=== PATIENT | male | born 1940 | race Caucasian/White ===

== ENCOUNTER 2019-11-14 14:32 | Inpatient (IN) ==
[2019-11-14] MEDS ORDERED: SODIUM CHLORIDE 0.9% 1000ML 1,000 ML IV ONE (14:52)
--- NOTE | 2019-11-14 15:07 | Emergency Department Note ---
Entered by Kathy Aguilera acting as a scribe for Srinivas Anders MD History of Present Illness General Chief complaint: Weakness Stated complaint: TROUBLE WALKING, WEAK, FREQUENT URINATION BUT NOT Time Seen by Provider: 11/14/19 14:40 Source: patient Mode of arrival: ambulatory Limitations: no limitations History of Present Illness Onset (ago): week(s) Radiation: non-radiation Pain Consistency: + constant Maximum Pain Intensity: 0 Relieved By: + none Exacerbated By: + none Associated symptoms: + cough, + loss of appetite and + other (-loss of vision, +throat pain with swallowing, +abdominal pain, -back pain, -hematochezia); no fever/chills Treatments prior to arrival: none The patient is an 79 year old male who presents to the ED with complaints of weakness for the past 2 weeks. He did see his PCP, Dr. Santamaria, 2 days ago, and was started on antibiotics for a urinary tract infection. His family states they have noticed a "steady downhill decline" in the patient over the past few weeks. He has been unable to sleep, weak, urinating more frequently and has had a decreased appetite. He states his throat does bother him with swallowing. He denies any recent fevers or falls. He denies any changes in vision. He does admit to increased coughing, saying "I cough a lot of mucous up". He denies any chest pain or palpitations but complains of some abdominal pain. He denies any hematochezia or back pain. He denies any recent changes in medications. Home Medications Home Medications Medication Instructions Recorded Confirmed Type albuterol sulfate 90 mcg/actuation 1 puffs INH Q6H PRN 10/01/19 11/14/19 History aerosol inhaler cyanocobalamin (vitamin B-12) 5,000 mcg PO DAILY 10/01/19 11/14/19 History 5,000 mcg capsule hydrochlorothiazide 12.5 mg capsule 12.5 mg PO DAILY 10/01/19 11/14/19 History multivitamin 1 tab PO DAILY 10/01/19 11/14/19 History tamsulosin 0.4 mg capsule 0.4 mg PO DAILY 10/01/19 11/14/19 History sulfamethoxazole 800 1 tab PO BID 10 Days #20 tab 11/12/19 11/14/19 Rx mg-trimethoprim 160 mg tablet Allergies Allergy/AdvReac Type Severity Reaction Status Date / Time No Known Allergies Allergy Verified 11/14/19 15:02 Past Med/Surg History Medical History B12 deficiency BPH (benign prostatic hyperplasia) Dyslipidemia Rosacea Surgical History S/P tonsillectomy Social History Preferred Language: Swedish Communication Ability: Effective Visual Impairment: No Limitations Hearing Ability: Normal Customer Support Coordinator Required: No Beliefs That Will Affect Care: None marital status: Current Living Situation: Spouse current occupational status: employed and retired current occupation: self employed, [employer] Feels Safe at Home: Yes Smoking Status: Former smoker Tobacco Type: cigarettes and smokeless tobacco ; packs per day: 1 ; Hx Alcohol Use: Yes Alcohol type: beer Alcohol Intake Frequency: Rarely Hx Substance Use: No Childhood Exposure to Second-Hand Smoke: Yes caffeine: Yes (2 cups coffee day) during the past year weight has: remained stable Dental Care, Regularly: No Physical Activity Frequency: Does not Exercise Seatbelt Use: never Sunscreen Use: Yes Review of Systems See HPI for pertinent positives & negatives. and A total of 10 systems reviewed and were otherwise negative Physical Exam Vital Signs Vital Signs - 24 hr 11/14/19 14:34 11/14/19 15:10 11/14/19 16:22 Temperature 36.7 C Temperature Source Oral Pulse Rate 102 H Pulse Rate [Left] 88 102 H Pulse Rhythm [Left] Regular Regular Respiratory Rate 20 22 20 Respiratory Effort / Characteristics Non-Labored Non-Labored Non-Labored Respiratory Depth Normal Normal Normal Respiratory Pattern Regular Regular Blood Pressure 105/64 Blood Pressure [Right Arm] 110/75 110/83 Blood Pressure Mean 77 Blood Pressure Mean [Right Arm] 86 92 Pulse Oximetry 96 97 99 Oxygen Delivery Method Room Air Room Air Room Air Sepsis Recent Fever Within 48 Hours No Sepsis Action Taken by Nursing No Action Required 11/14/19 17:13 Temperature Temperature Source Pulse Rate Pulse Rate [Left] 95 H Pulse Rhythm [Left] Regular Respiratory Rate 25 H Respiratory Effort / Characteristics Non-Labored Respiratory Depth Normal Respiratory Pattern Regular Blood Pressure Blood Pressure [Right Arm] 136/82 Blood Pressure Mean Blood Pressure Mean [Right Arm] 100 Pulse Oximetry 99 Oxygen Delivery Method Room Air Sepsis Recent Fever Within 48 Hours Sepsis Action Taken by Nursing General: Non-ill appearing older male in no acute distress. HEENT: Normal cephalic atraumatic. Pupils are equal round and reactive to light. Extraocular movements are intact. Oropharynx is pink with moist mucous membranes. No swelling of the mouth lips or tongue. Neck: Supple with a midline trachea. No meningeal signs or stiffness, no JVD or bruits. No Stridor. Chest: Clear to auscultation bilaterally. No wheezes or rhonchi. No increased work of breathing. Heart: regular rate and rhythm. Abdomen: Soft nontender, nondistended without rebound guarding or rigidity. Extremities: No cyanosis clubbing or edema. No calf tenderness or asymmetry Spine/Back. Non tender to palpation. No CVA tenderness Skin: Good turgor without rashes. Neurologic exam: Cranial nerves two through 12 are intact. Motor and sensation are intact and symmetrical throughout. Course Course 1442: The patient was evaluated in room A10 and a complete history and physical were performed. 1540: I reevaluated the patient. He is resting comfortably and waiting to CT scan. 1555: I reevaluated the patient. He is resting comfortably and responds appropriately to questions. 1645: I reevaluated the patient. He is stable and resting comfortably. I discussed his results and my recommendation he remain in the hospital for further evaluation and management and he is agreeable with the plan. 1652: I discussed the patients case with Dr. Fernandez, [facility] Hospitalist. She would like me to talk to GI. 1655: I discussed the patients case with Dr. Stallworth, [facility] Gastroenterology. He recommends we talk to General Surgery. 1702: I discussed the patients case with Dr. Moy [facility] General Surgery. If the hospitalist is comfortable treating the patient here, he can remain here, or be transferred depending on the hospitalist and families wishes. 1710: I spoke to Dr. Fernandez and she is comfortable keeping the patient here. The family would also like the patient to stay here if possible. If the patient worsens, the family will consider transfer but they are comfortable with the plan. Administered Medications Ciprofloxacin (Cipro) 400 mg in 200 mls @ 100 mls/hr IV Q12 TRINIDAD; Protocol Stop: 11/24/19 20:59 Last Admin: 11/14/19 20:49 Dose: 100 mls/hr Documented by: [id number] Potassium Chloride/Sodium Chloride (Normal Saline W/20 Meq Kcl) 20 meq in 1,000 mls @ 80 mls/hr IV .[id number] TRINIDAD Stop: 12/14/19 19:59 Last Admin: 11/14/19 20:48 Dose: 80 mls/hr Documented by: [id number] Tamsulosin HCl (Flomax) 0.4 mg PO DAILY [place]ID[place] Stop: 12/14/19 19:45 Last Admin: 11/14/19 20:44 Dose: 0.4 mg Documented by: [id number] Discontinued Medications Sodium Chloride (Nss 1000ml) 1,000 mls @ 999 mls/hr IV .[id number] ONE Stop: 11/14/19 15:52 Last Infusion: 11/14/19 17:26 Dose: 0 mls/hr Documented by: [id number] Admin: 11/14/19 16:21 Dose: 999 mls/hr Documented by: [id number] Piperacillin Sod/Tazobactam Sod (Zosyn) 4.5 gm in 120 mls @ 240 mls/hr IV NOW STA Stop: 11/14/19 17:18 Last Infusion: 11/14/19 17:45 Dose: 0 mls/hr Documented by: [id number] Admin: 11/14/19 17:13 Dose: 240 mls/hr Documented by: [id number] Medical Decision Making Differential Diagnosis The differential diagnoses considered include sepsis, electrolyte or metabolic abnormality, intracranial process, intracranial process, diverticulitis, UTI and cardiac disease. Medical Records Attestation: I reviewed the patient's medical records. Home Medications Current Medication List: was personally reviewed by me Laboratory Data Attestation: I reviewed the patient's lab results. Result diagrams: 11/14/19 15:11 11/14/19 15:11 Lab Results 11/14/19 11/14/19 11/14/19 Range/Units 15:11 15:11 15:11 WBC 10.91 H (4.8-10.8) K/uL RBC 3.80 L (4.7-6.1) M/uL Hgb 11.2 L (14.0-18.0) g/dL Hct 32.6 L (42-52) % MCV 85.8 (80-100) fL MCH 29.5 (25-34) pg MCHC 34.4 (32-36) g/dL RDW Std Deviation 40.9 (36.4-46.3) fL RDW Coeff of Brandan 13.0 (11.5-14.5) % Plt Count 250 (130-400) K/uL MPV 9.0 (7.4-10.4) fL Immature Gran % (Auto) 0.6 % Neut % (Auto) 80.0 % Lymph % (Auto) 8.4 % [place] % (Auto) 10.4 % Eos % (Auto) 0.4 % Baso % (Auto) 0.2 % Immature Gran # (Auto) 0.07 H (0.00-0.02) K/uL Neut # (Auto) 8.72 H (1.4-6.5) K/uL Lymph # (Auto) 0.92 L (1.2-3.4) K/uL [place] # (Auto) 1.14 H (0.11-0.59) K/uL Eos # (Auto) 0.04 (0-0.5) K/uL Baso # (Auto) 0.02 (0-0.2) K/uL PT 13.3 H (9.0-12.0) Seconds INR 1.3 H (0.9-1.1) APTT 28.5 (21.0-31.0) Seconds PTT Ratio 1.1 Sodium 128 L (136-145) mmol/L Potassium 3.1 L (3.5-5.1) mmol/L Chloride 91 L (98-107) mmol/L Carbon Dioxide 29 (21-32) mmol/L Anion Gap 8.0 (3-11) BUN 16 (7-18) mg/dl Creatinine 0.86 (0.6-1.4) mg/dl Est Cr Clr Drug Dosing 62.3 ml/min Est GFR ( Amer) 94.9 Est GFR (Non-Af Amer) 81.9 BUN/Creatinine Ratio 18.6 (10-20) Glucose 102 H (70-99) mg/dl Lactate (0.4-2.0) mmol/L Calcium 8.0 L (8.5-10.1) mg/dl Total Bilirubin 0.5 (0.2-1) mg/dl AST 38 H (15-37) U/L ALT 27 (12-78) U/L Alkaline Phosphatase 82 (45-117) U/L Troponin I < 0.015 (0-0.045) ng/ml Total Protein 6.3 L (6.4-8.2) gm/dl Albumin 2.0 L (3.4-5.0) gm/dl Globulin 4.3 H (2.5-4.0) gm/dl Albumin/Globulin Ratio 0.5 L (0.9-2) Procalcitonin (0-0.5) ng/ml Urine Color Urine Appearance (Clear) Urine pH (4.5-7.5) Ur Specific [place] (1.000-1.030) Urine Protein (Negative) Urine Glucose (UA) (Negative) Urine Ketones (Negative) Urine Blood (Negative) Urine Nitrite (Negative) Urine Bilirubin (Negative) Urine Urobilinogen (Negative) Ur Leukocyte Esterase (Negative) Urine WBC (Auto) (0-5) /hpf Urine RBC (Auto) (0-4) /hpf U Hyaline Cast (Auto) (0-5) /lpf U Epithel Cells (Auto) (0-5) /lpf Urine Bacteria (Auto) (Negative) Urine Yeast 11/14/19 11/14/19 11/14/19 Range/Units 15:11 15:17 16:00 WBC (4.8-10.8) K/uL RBC (4.7-6.1) M/uL Hgb (14.0-18.0) g/dL Hct (42-52) % MCV (80-100) fL MCH (25-34) pg MCHC (32-36) g/dL RDW Std Deviation (36.4-46.3) fL RDW Coeff of Brandan (11.5-14.5) % Plt Count (130-400) K/uL MPV (7.4-10.4) fL Immature Gran % (Auto) % Neut % (Auto) % Lymph % (Auto) % [place] % (Auto) % Eos % (Auto) % Baso % (Auto) % Immature Gran # (Auto) (0.00-0.02) K/uL Neut # (Auto) (1.4-6.5) K/uL Lymph # (Auto) (1.2-3.4) K/uL [place] # (Auto) (0.11-0.59) K/uL Eos # (Auto) (0-0.5) K/uL Baso # (Auto) (0-0.2) K/uL PT (9.0-12.0) Seconds INR (0.9-1.1) APTT (21.0-31.0) Seconds PTT Ratio Sodium (136-145) mmol/L Potassium (3.5-5.1) mmol/L Chloride (98-107) mmol/L Carbon Dioxide (21-32) mmol/L Anion Gap (3-11) BUN (7-18) mg/dl Creatinine (0.6-1.4) mg/dl Est Cr Clr Drug Dosing ml/min Est GFR ( Amer) Est GFR (Non-Af Amer) BUN/Creatinine Ratio (10-20) Glucose (70-99) mg/dl Lactate 1.2 (0.4-2.0) mmol/L Calcium (8.5-10.1) mg/dl Total Bilirubin (0.2-1) mg/dl AST (15-37) U/L ALT (12-78) U/L Alkaline Phosphatase (45-117) U/L Troponin I (0-0.045) ng/ml Total Protein (6.4-8.2) gm/dl Albumin (3.4-5.0) gm/dl Globulin (2.5-4.0) gm/dl Albumin/Globulin Ratio (0.9-2) Procalcitonin 0.18 (0-0.5) ng/ml Urine Color Yellow Urine Appearance Turbid A (Clear) Urine pH 7.0 (4.5-7.5) Ur Specific [place] 1.010 (1.000-1.030) Urine Protein 1+ H (Negative) Urine Glucose (UA) Negative (Negative) Urine Ketones Negative (Negative) Urine Blood 3+ H (Negative) Urine Nitrite Negative (Negative) Urine Bilirubin Negative (Negative) Urine Urobilinogen Negative (Negative) Ur Leukocyte Esterase 3+ H (Negative) Urine WBC (Auto) >30 H (0-5) /hpf Urine RBC (Auto) 5-10 H (0-4) /hpf U Hyaline Cast (Auto) 0 (0-5) /lpf U Epithel Cells (Auto) 10-20 H (0-5) /lpf Urine Bacteria (Auto) 1+ H (Negative) Urine Yeast Not Reportable Imaging Data Radiologist's Impression: Radiology results as stated below per my review and the radiologist's interpretation: XR chest 1V portable CLINICAL HISTORY: 79 years-old Male presenting with Sepsis. TECHNIQUE: Portable upright AP view of the chest was obtained. COMPARISON: Chest CT from 11/10/2019. FINDINGS: Cardiomediastinal silhouette normal. Coarsened lung markings with subtle reticular opacities in the periphery of the mid to lower lungs. This correlates with the extensive subpleural reticulation evident on recent CT chest. No new focal opacity. No large effusion or pneumothorax. Degenerative changes of the thoracic spine. Degenerative changes of the shoulders. Upper abdomen normal. IMPRESSION: 1. Chronic reticular peripheral mid to basilar predominant infiltrates as on chest CT consistent with chronic lung disease. No convincing evidence of a superimposed infiltrate to raise concern for pneumonia. ACT 112: Negative or not required by law. Electronically signed by: Malik Norman M.D. 11/14/2019 3:[address] head/brain wo con CLINICAL HISTORY: 79 years-old Male presenting with weakness diffuse, confusion. TECHNIQUE: Multidetector CT imaging of the head was performed without the use of intravenous contrast. IV contrast: None. One or more dose lowering techniques were used consistent with the principles of ALARA (as low as reasonably achievable), including automatic exposure control, mA or kV adjustment to individual patient size, and/or use of iterative reconstruction. COMPARISON: None. CT DOSE (mGy.cm): The estimated cumulative dose is 1089.85 mGy.cm. FINDINGS: Conditioner Tumbler Operator topogram: Unremarkable. Proportional ventricular and sulcal prominence, likely age-related parenchymal volume loss. No hemorrhage. Brain parenchyma normal in appearance with preserved gonzalez-white differentiation. No acute territorial infarct. No mass effect or midline shift. No extra-axial fluid collection. Paranasal sinuses and mastoid air cells clear. Calvarium intact. IMPRESSION: 1. No acute intracranial abnormality. ACT 112: Negative or not required by law. Electronically signed by: Malik Norman M.D. 11/14/2019 4:[address] abd pelvis wo con CLINICAL HISTORY: 79 years-old Male presenting with abd pain, weight loss, confusion, hx of diverticulitis. TECHNIQUE: Multidetector CT of the abdomen and pelvis was performed without the use of intravenous contrast. IV contrast: None. One or more dose lowering techniques were used consistent with the principles of ALARA (as low as reasonably achievable), including automatic exposure control, mA or kV adju stment to individual patient size, and/or use of iterative reconstruction. COMPARISON: None. CT DOSE (mGy.cm): The estimated cumulative dose is 1089.85. FINDINGS: Conditioner Tumbler Operator topogram: Unremarkable. Lung bases: Trace aortic valve calcification. Top normal heart size. Intraventricular blood pool may be slightly less dense than adjacent myocardium. No pericardial or pleural effusion. Reticular peripheral and subpleural predominant infiltrates. Trace bronchiectasis may be present. Few cysts or emphy sema also noted. Liver: Normal morphology. Normal density. Biliary: No gross biliary ductal dilatation allowing for noncontrast technique. Normal gallbladder. Pancreas: Moderate parenchymal atrophy. Spleen: Normal noncontrast appearance. Adrenal glands: 2.1 cm nodule in the right adrenal gland compatible with benign adenoma by density. Normal noncontrast appearance of the left adrenal gland. Kidneys and ureters: Normal noncontrast appearance. No nephrolithiasis. No hydronephrosis. Normal ureters. Bladder: Gas in the urinary bladder with a fistula suspected to adjacent bowel along the bladder dome. The bladder is incompletely distended with focal wall thickening of the bladder dome. Pelvic organs: Prostate enlargement likely secondary to benign prostatic hyperplasia. Bowel: Significant wall thickening of the sigmoid colon. This region is also affected by diverticulosis. Trace pericolonic inflammatory change in this region. There is suspected fistulization with adjacent bowel arising from the proximal sigmoid colon. A collection is suggested in the left lower quadrant measuring approximately 3.5 cm. This may either connect or be adjacent to a separate possible collection involving the overlying abdominal musculature measuring 3.7 cm. Fistulization with an adjacent loop of small bowel as well as the bladder dome is suspected along the anteromedial aspect (series 5 image 3 [phone]). Mild diverticulosis of the descending colon. Mild stool burden throughout normal caliber colon. The appendix is normal. No bowel obstruction. Peritoneal cavity: Inflammatory change in the left lower quadrant with infiltrated mesentery. Fluid collections containing feces and gas as measured above. No significant free intraperitoneal fluid. No free intraperitoneal gas apart from the loculated collections. Lymph nodes: No gross lymphadenopathy allowing for noncontrast technique. Vasculature: Atherosclerosis of the normal caliber abdominal aorta. Abdominal wall: Infiltration of the small fat-containing left inguinal hernia along the inner ring. Small fat-containing right inguinal hernia also noted. Musculoskeletal: Degenerative changes of the spine. IMPRESSION: 1. Extensive wall thickening of the sigmoid colon with pericolonic inflammatory change and diverticulosis suggesting chronic diverticular disease/circular muscle hyperplasia with superimposed complicated acute diverticulitis. Fistulization suspected with the adjacent urinary bladder, loops of small bowel, and multiple gas and feces containing collections. These collections presumably represent abscesses and measure up to 3.7 cm. These are not well delineated in the absence of intravenous and oral contrast. An underlying sigmoid colon neoplasm is difficult to exclude and colonoscopy should be performed after treat ment. 2. Chronic lung disease. ACT 112: Negative or not required by law. Electronically signed by: Malik Norman M.D. 11/14/2019 4:33 PM ECG Data Attestation: I personally reviewed and interpreted this ECG as follows: Indication: + weakness Rate (beats per minute): 102 Rhythm: + sinus tachycardia ECG ST segments: no ST depression and no ST elevation ECG Findings: + PACs and + PVCs Comparison ECG Date: no prior available MDM Narrative This patient comes in as described above. He has been having weakness over the last several weeks. he has had weight loss and he has not been eating much. At one point, he has been having some abdominal pain as well he was recent for UTI starting with meds on . His family thinks that this is all new and or concern for infection among other potential etiologies. He appears in no distress and stable vital signs. I did order CAT scan of his head as well as his abdomen. he had a recent chest CT which shows some chronic interstitial lung disease but no other acute changes. EKG and multiple blood testing was obtained including blood cultures. he was hydrated 1 L IV normal saline fluid bolus. He was reassessed frequently. Chest x-ray shows no acute findings he has some chronic disease. EKG shows PACs but no acute abnormalities. Troponin is not el evated he has nothing to suggest acute coronary syndrome or significant arrhythmia. He does have a normal neurologic exam and a CAT scan of his head shows no acute findings. His sodium is mildly low at 128, he was hydrated with IV normal saline and this could be related to dehydration. His potassium is also mildly low at 3.1. He has a normal lactic acid which would go against sepsis. His white count is only mildly elevated at 10. CAT scan of the head was unremarkable CAT scan of the abdomen shows significant colonic changes likely consistent with acute on chronic diverticulitis with some fistula some small abscesses. He was given Zosyn 4.5 g IV. I discussed this with Dr. Stallworth, GI line production cook, who felt that he was IV antibiotics acutely but recommended I discussed it with Dr. Moy. Dr. Moy, Surgeon on-call, agreed and they both agreed that he should be seen by a colorectal surgeon at some point but the short-term treatment is most likely just to be IV antibiotics unless he gets septic or gets worse. The family is happy with him being admitted here and I think that for tonight that is a good game plan and obviously if he gets worse he can be transferred out. He will need to be followed up by colorectal surgery or surgery at some point the near future as well. I did discuss case with Dr. Johnson the on-call hospitalist she agrees and will see the patient in the ER. Impression & Plan Diverticulitis, Weakness, Colitis, Abscess, Fistula, Hyponatremia Discharge Plan Visit Data *Final* Discharge Date/Time: 11/14/19 18:39 Chief Complaint: Weakness Stated Complaint: TROUBLE WALKING, WEAK, FREQUENT URINATION BUT NOT ED Provider: Srinivas Anders Discharge Problem: Diverticulitis, Weakness, Colitis, Abscess, Fistula, Hyponatremia Patient Disposition: Admitted As Inpatient Discharge Instructions Interventions: ED Discharge Assessment Last Done: 11/14/19 18:39 The scribe's documentation has been prepared under my direction and personally reviewed by me in its entirety. I confirm that the note above accurately reflects all work, treatment, procedures, and medical decision making performed by me.
--- NOTE | 2019-11-14 15:34 | XRay Report ---
XR chest 1V portable CLINICAL HISTORY: 79 years-old Male presenting with Sepsis. TECHNIQUE: Portable upright AP view of the chest was obtained. COMPARISON: Chest CT from 11/10/2019. FINDINGS: Cardiomediastinal silhouette normal. Coarsened lung markings with subtle reticular opacities in the p eriphery of the mid to lower lungs. This correlates with the extensive subpleural reticulation eviden t on recent CT chest. No new focal opacity. No large effusion or pneumothorax. Degenerative changes o f the thoracic spine. Degenerative changes of the shoulders. Upper abdomen normal. IMPRESSION: 1. Chronic reticular peripheral mid to basilar predominant infiltrates as on chest CT consistent wit h chronic lung disease. No convincing evidence of a superimposed infiltrate to raise concern for pneu monia. ACT 112: Negative or not required by law. Electronically signed by: Malik Norman M.D. 11/14/2019 3:33 PM
[2019-11-14 15:41] LABS: Basophils # (auto) 0.02 K/uL (0-0.2); Basophils % (auto) 0.2 %; Eosinophils # (auto) 0.04 K/uL (0-0.5); Eosinophils % (auto) 0.4 %; Hematocrit (blood only) 32.6 % (42-52); Hemoglobin 11.2 g/dL (14.0-18.0); Immature Granulocytes # (auto) 0.07 K/uL (0.00-0.02); Immature Granulocytes % (auto) 0.6 %; Lymphocytes # (auto) 0.92 K/uL (1.2-3.4); Lymphocytes % (auto) 8.4 %; Mean Corpuscular Hemoglobin 29.5 pg (25-34); Mean Corpuscular Hgb Conc 34.4 g/dL (32-36); Mean Corpuscular Volume 85.8 fL (80-100); Monocytes # (auto) 1.14 K/uL (0.11-0.59); Monocytes % (auto) 10.4 %; Neutrophils # (auto) 8.72 K/uL (1.4-6.5); Platelet Count 250 K/uL (130-400); RDW Standard Deviation 40.9 fL (36.4-46.3); White Blood Count 10.91 K/uL (4.8-10.8)
[2019-11-14 16:00] LABS: Alanine Aminotransferase 27 U/L (12-78); Aspartate Aminotransferase 38 U/L (15-37); BUN Creatinine Ratio 18.6 (10-20); Blood Urea Nitrogen 16 mg/dl (7-18); Carbon Dioxide 29 mmol/L (21-32); Chloride 91 mmol/L (98-107); Creatinine Clr Calc Pharmacy 62.3 ml/min; Est GFR (African American) 94.9; Est GFR (Non-African American) 81.9; Glucose 102 mg/dl (70-99); Potassium 3.1 mmol/L (3.5-5.1); Sodium 128 mmol/L (136-145)
[2019-11-14 16:04] LABS: Albumin Globulin Ratio 0.5 (0.9-2); Alkaline Phosphatase 82 U/L (45-117); Bilirubin,Total 0.5 mg/dl (0.2-1); Globulin 4.3 gm/dl (2.5-4.0); Total Protein 6.3 gm/dl (6.4-8.2); Troponin I < 0.015 ng/ml (0-0.045)
[2019-11-14 16:09] LABS: INR 1.3 (0.9-1.1); Partial Thromboplastin Ratio 1.1; Partial Thromboplastin Time 28.5 Seconds (21.0-31.0); Prothrombin Time 13.3 Seconds (9.0-12.0)
--- NOTE | 2019-11-14 16:25 | CT Scan Report ---
CT head/brain wo con CLINICAL HISTORY: 79 years-old Male presenting with weakness diffuse, confusion. TECHNIQUE: Multidetector CT imaging of the head was performed without the use of intravenous contrast . IV contrast: None. One or more dose lowering techniques were used consistent with the principles of ALARA (as low as reasonably achievable), including automatic exposure control, mA or kV adjustment t o individual patient size, and/or use of iterative reconstruction. COMPARISON: None. CT DOSE (mGy.cm): The estimated cumulative dose is 1089.85 mGy.cm. FINDINGS: Help Desk Assistant topogram: Unremarkable. Proportional ventricular and sulcal prominence, likely age-related parenchymal volume loss. No hemorr jamin. Brain parenchyma normal in appearance with preserved gonzalez-white differentiation. No acute maxwell torial infarct. No mass effect or midline shift. No extra-axial fluid collection. Paranasal sinuses a nd mastoid air cells clear. Calvarium intact. IMPRESSION: 1. No acute intracranial abnormality. ACT 112: Negative or not required by law. Electronically signed by: Malik Norman M.D. 11/14/2019 4:23 PM
[2019-11-14 16:26] LABS: Appearance Urine Turbid (Clear); Bacteria Urine Automated 1+ (Negative); Bilirubin Urine Negative (Negative); Blood Urine 3+ (Negative); Cast Urine Automated 0 /lpf (0-5); Color Urine Yellow; Glucose Urine UA Negative (Negative); Ketones Urine Negative (Negative); Leukocyte Esterase Urine 3+ (Negative); Nitrite Urine Negative (Negative); Protein Urine 1+ (Negative); Urobilinogen Urine Negative (Negative); WBC Urine Automated >30 /hpf (0-5)
--- NOTE | 2019-11-14 16:34 | CT Scan Report ---
CT abd pelvis wo con CLINICAL HISTORY: 79 years-old Male presenting with abd pain, weight loss, confusion, hx of diverticu litis. TECHNIQUE: Multidetector CT of the abdomen and pelvis was performed without the use of intravenous co ntrast. IV contrast: None. One or more dose lowering techniques were used consistent with the princip les of MARIANA (as low as reasonably achievable), including automatic exposure control, mA or kV adjust ment to individual patient size, and/or use of iterative reconstruction. COMPARISON: None. CT DOSE (mGy.cm): The estimated cumulative dose is 1089.85. FINDINGS: Box Printer topogram: Unremarkable. Lung bases: Trace aortic valve calcification. Top normal heart size. Intraventricular blood pool may be slightly less dense than adjacent myocardium. No pericardial or pleural effusion. Reticular periph eral and subpleural predominant infiltrates. Trace bronchiectasis may be present. Few cysts or emphys km also noted. Liver: Normal morphology. Normal density. Biliary: No gross biliary ductal dilatation allowing for noncontrast technique. Normal gallbladder. Pancreas: Moderate parenchymal atrophy. Spleen: Normal noncontrast appearance. Adrenal glands: 2.1 cm nodule in the right adrenal gland compatible with benign adenoma by density. N ormal noncontrast appearance of the left adrenal gland. Kidneys and ureters: Normal noncontrast appearance. No nephrolithiasis. No hydronephrosis. Normal ure ters. Bladder: Gas in the urinary bladder with a fistula suspected to adjacent bowel along the bladder dome . The bladder is incompletely distended with focal wall thickening of the bladder dome. Pelvic organs: Prostate enlargement likely secondary to benign prostatic hyperplasia. Bowel: Significant wall thickening of the sigmoid colon. This region is also affected by diverticulos is. Trace pericolonic inflammatory change in this region. There is suspected fistulization with adjac ent bowel arising from the proximal sigmoid colon. A collection is suggested in the left lower quadra nt measuring approximately 3.5 cm. This may either connect or be adjacent to a separate possible cherise ection involving the overlying abdominal musculature measuring 3.7 cm. Fistulization with an adjacent loop of small bowel as well as the bladder dome is suspected along the anteromedial aspect (series 5 image 352). Mild diverticulosis of the descending colon. Mild stool burden throughout normal caliber colon. The appendix is normal. No bowel obstruction. Peritoneal cavity: Inflammatory change in the left lower quadrant with infiltrated mesentery. Fluid c ollections containing feces and gas as measured above. No significant free intraperitoneal fluid. No free intraperitoneal gas apart from the loculated collections. Lymph nodes: No gross lymphadenopathy allowing for noncontrast technique. Vasculature: Atherosclerosis of the normal caliber abdominal aorta. Abdominal wall: Infiltration of the small fat-containing left inguinal hernia along the inner ring. S mall fat-containing right inguinal hernia also noted. Musculoskeletal: Degenerative changes of the spine. IMPRESSION: 1. Extensive wall thickening of the sigmoid colon with pericolonic inflammatory change and diverticu losis suggesting chronic diverticular disease/circular muscle hyperplasia with superimposed complicat ed acute diverticulitis. Fistulization suspected with the adjacent urinary bladder, loops of small alejandro wel, and multiple gas and feces containing collections. These collections presumably represent absces ses and measure up to 3.7 cm. These are not well delineated in the absence of intravenous and oral co ntrast. An underlying sigmoid colon neoplasm is difficult to exclude and colonoscopy should be perfor med after treatment. 2. Chronic lung disease. ACT 112: Negative or not required by law. Electronically signed by: Malik Norman M.D. 11/14/2019 4:33 PM
[2019-11-14] MEDS ORDERED: PIPERACILLIN/TAZOBACTAM 4.5 GM/120 ML BAG IV STA (16:49)
--- NOTE | 2019-11-14 17:56 | History & Physical Report ---
Date of Service November 14, 2019 Assessment & Plan (1) Colitis: Admit to [facility] on telemetry Vital signs every 4 hours Gentle IV fluid hydration with normal saline with potassium Monitor electrolytes closely and CBC/WBCs Urine culture and blood culture pending Fecal occult blood pending CA 199 and CEA pending Pain management Placed order for TTE since patient's EKG is abnormal. Stool cultures and C. difficile Keep n.p.o. for now until it is clear what is the next step. Discussed with GI. Consult gastroenterology Dr. Tomas Stallworth Started ciprofloxacin and Flagyl IV DVT prophylaxis-contraindicated medical DVT prophylaxis since patient has hematuria. Continue with SCDs and teds Full code Present on Admission?: Yes (2) Weakness: Patient would benefit from physical and Occupational Therapy. Generalized weakness most likely related to acute illness diverticulitis/abscess/urinary tract infection/fistula. Treat underlying problem Present on Admission?: Yes (3) Diverticulitis: As the above Present on Admission?: Yes (4) Abscess: As the above Present on Admission?: Yes (5) Fistula: As the above (6) Hyponatremia: (7) Rosacea: (8) B12 deficiency: Will check B12. Continue 5000 MCG's of B12 daily Present on Admission?: Yes (9) BPH (benign prostatic hyperplasia): Patient has hematuria. It could be related to BPH and or urinary tract infection. Started treatment for urinary tract infection with Cipro. Follow-up with urinary culture, then treat per specificity and sensitivity. Monitor CBC daily. H&H for now appears to be stable 11.2/32.6. Continue tamsulosin 0.4 mg capsule p.o. daily. Present on Admission?: Yes (10) Dyslipidemia: Lipid panel pending. Patient is not on any kind of lipid lowering agents. Present on Admission?: Yes (11) History of chronic cough: Continue albuterol sulfate 1 puff every 6 hours as needed. (12) Hypertension: Heart healthy diet. Continue hydrochlorothiazide 12.5 mg p.o. daily. Blood pressure appears to be stable. Continue monitoring every 4 hours. Present on Admission?: Yes (13) Hematuria: Most likely related to urinary tract infection but could be related to BPH as well. Plan to consult urology. Continue monitoring H&H. Present on Admission?: Yes (14) Urinary tract infection: As already discussed. Patient was started on ciprofloxacin which would cover for both urinary tract infection and infection of the bowel. Present on Admission?: Yes History of Present Illness Chief Complaint: Abdominal pain, weight loss and diarrhea Primary Care Provider: Litzy Santamaria DO Patient is a 79 years old male with past medical history of chronic cough, hypertension, BPH, B12 deficiency, who was brought by his son and with a complaint that patient has diarrhea and abdominal pain for 2 months and that he is losing weight and lost approximately approximately 20 pounds and that he was trying to avoid to see a doctor and address this problem for 2 months. Patient states that he lost appetite which was not of concern to him but it was of concern to his family. Patient said that his problem has been ongoing for 20 years and it is worsening. He reports having diverticulosis that on occasion becomes diverticulitis and he was treating it with antibiotics from time to time Metamucil etc. Patient family is concerned that if he goes home he will not be treated at all and they will have difficult time bringing him back. ER physician discussed the case with Dr. Tomas BYRD and he recommended to start him on antibiotics and see if there is any improvement but eventually patient would need to see colorectal surgeon for further evaluation and treatment of his extensive GI disease. Patient denies fever, chills, chest pain, shortness of breath, frequency, urgency. He reports loose bowel movements and states that there was no blood in there. Patient denies melena and hematochezia. Of the record, per ER physician patient's transfer to [facility] to see colorectal surgeon at this point would be extremely difficult because there is no bed available and patient would need to wait at least 12+ hours for the bed. Labs are reviewed: WBCs 10.91, hemoglobin 11.2, hematocrit 32.6, platelets 250, PT 13.3, INR 1.3, APTT 28.5. Sodium 128, potassium 3.1, chloride 91, creatinine 0.86, GFR 81.9, lactate 1.2, bilirubin 0.5, troponin is 0.015, total protein 6.3, albumin 2, globulin 4.3, procalcitonin 0.18, urine turbid, urine protein 1+, urine blood 3+, leukocyte esterase 3+, WBCs 30, bacteria 1+. CT abdomen pelvis shows extensive wall thickening of the sigmoid colon with tonio-colonic inflammatory change and diverticulosis suggesting chronic diverticular diseas e/circular muscle hyperplasia with superimposed complicated acute diverticulitis. Fistulization suspected with the adjacent urinary bladder, loops of small bowel and multiple gas and feces containing collections. These collections presumptively represent abscess measuring 3.7 cm. There are not well aligned in the absence of the intravenous and oral contrast. An underlying sigmoid colon neoplasm is difficult to exclude and colonoscopy should be performed after treatment. Patient has chronic lung disease. Decision was made to admit patient to [facility] floor acute on chronic diverticulitis/a bscess/fistula, urinary tract infection, anorexia, weight loss, and further on treatment deemed to be necessary. Allergies Allergy/AdvReac Type Severity Reaction Status Date / Time No Known Allergies Allergy Verified 11/14/19 15:02 Home Medications Home Medications Medication Instructions Recorded Confirmed Type albuterol sulfate 90 mcg/actuation 1 puffs INH Q6H PRN 10/01/19 11/14/19 History aerosol inhaler cyanocobalamin (vitamin B-12) 5,000 mcg PO DAILY 10/01/19 11/14/19 History 5,000 mcg capsule hydrochlorothiazide 12.5 mg capsule 12.5 mg PO DAILY 10/01/19 11/14/19 History multivitamin 1 tab PO DAILY 10/01/19 11/14/19 History tamsulosin 0.4 mg capsule 0.4 mg PO DAILY 10/01/19 11/14/19 History sulfamethoxazole 800 1 tab PO BID 10 Days #20 tab 11/12/19 11/14/19 Rx mg-trimethoprim 160 mg tablet Past Med/Surg History Medical History B12 deficiency BPH (benign prostatic hyperplasia) Dyslipidemia Rosacea Surgical History S/P tonsillectomy Social History Preferred Language: Slovenian Communication Ability: Effective Visual Impairment: No Limitations Hearing Ability: Normal [employer] Bi Developer Required: No Beliefs That Will Affect Care: None marital status: Current Living Situation: Spouse current occupational status: employed and retired current occupation: self employed, [employer] Other Information That Helps Us Care for You: No Feels Safe at Home: Yes Safety Concerns: Feels Safe At This Time Smoking Status: Former smoker Tobacco Type: cigarettes and smokeless tobacco ; packs per day: 1 ; Hx Alcohol Use: Yes Alcohol type: beer Alcohol Intake Frequency: Rarely Hx Substance Use: No Childhood Exposure to Second-Hand Smoke: Yes caffeine: Yes (2 cups coffee day) during the past year weight has: remained stable Dental Care, Regularly: No Physical Activity Frequency: Does not Exercise Seatbelt Use: never Sunscreen Use: Yes Review of Systems Review of Systems: All systems reviewed & are unremarkable except as noted in HPI & below Physical Exam Constitutional: WD/WN, vitals as above well developed and + cachectic Eyes: PERRL, conjunctivae normal, anicteric sclerae ENMT: external ear and nose normal, oropharynx normal Neck: trachea midline, no thyromegaly Respiratory: normal respiratory effort, lungs clear to auscultation Cardiovascular: Heart Sounds: normal S1 and normal S2 Vessels: dorsalis pedis pulses present Gastrointestinal (Abdomen): Inspection/Auscultation: + abdomen distended, + high-pitched sounds and + hyperactive bowel sounds Percussion/Palpation: + abdomen tender and abdomen soft Bowel sounds hyperactive and pitched. Patient reports nonbloody diarrhea. Musculoskeletal: no cyanosis or clubbing, extremities motor strength 5/5 Skin: no rashes, warm and dry Neurologic: patellar DTR's 2+ bilat, sensation intact Psychiatric: A+Ox3, euthymic affect Genitourinary: Positive for suprapubic tenderness Lymphatic: no cervical or axillary lymphadenopathy Results & Data Vital Signs (Past 12 Hours) Vital Signs Temp Pulse Pulse Resp BP BP Pulse Ox 11/14/19 17:13 95 H 25 H 136/82 99 11/14/19 16:22 102 H 20 110/83 99 11/14/19 15:10 88 22 110/75 97 11/14/19 14:34 36.7 C 102 H 20 105/64 96 Code Status & VTE Plan Code Status Full code VTE Prophylaxis Plan VTE Prophylaxis will be ordered: Yes PG Care Time/CCT Total # of Minutes Spent Total Time Spent with Patient: Total time spent is greater than 50% in coordination of care (as documented) at patient's floor/unit and/or counseling patient:
[2019-11-14] MEDS ORDERED: ALUMINUM/MAGNESIUM SUSP 30 ML UDC PO PRN (19:46)
[2019-11-14] MEDS ORDERED: POLYETHYLENE (MIRALAX) 17 GM PACK PO PRN (19:46)
[2019-11-14] MEDS ORDERED: MAGNESIUM HYDROXIDE SUSP 30 ML UDC PO PRN (19:46)
[2019-11-14] MEDS ORDERED: ACETAMINOPHEN 325 MG TAB PO PRN (19:46)
[2019-11-14] MEDS ORDERED: ONDANSETRON INJ 2 MG/ML 2 ML VIAL IV PRN (19:46)
[2019-11-14] MEDS ORDERED: MoRPHine SULFATE 2 MG/ML CARP IV PRN (19:46)
[2019-11-14] MEDS ORDERED: ALBUTEROL HFA 8 GM INHALER INH PRN (19:54)
[2019-11-14] MEDS: TAMSULOSIN HCL 0.4 MG CAP PO SCH (20:44)
[2019-11-14 20:45] LABS: Thyroid Stimulating Hormone 3.2 uIu/ml (0.300-4.500)
[2019-11-14] MEDS: NSS + 20MEQ KCL 20 MEQ/1,000 ML BAG IV SCH (20:48)
[2019-11-14] MEDS: CIPROFLOXACIN 400 MG/200 ML BAG IV SCH (20:49)
[2019-11-14 22:17] LABS: Appearance Urine Turbid (Clear); Bacteria Urine Automated Negative (Negative); Bilirubin Urine Negative (Negative); Blood Urine 3+ (Negative); Color Urine Yellow; Epithelial Cell Urine Auto >30 /lpf (0-5); Glucose Urine UA Negative (Negative); Ketones Urine Negative (Negative); Leukocyte Esterase Urine 3+ (Negative); Nitrite Urine Negative (Negative); Specific Gravity Urine 1.012 (1.000-1.030); Urobilinogen Urine Negative (Negative); WBC Urine Automated >30 /hpf (0-5); pH Urine 7.5 (4.5-7.5)
[2019-11-14 22:26] LABS: Protein Urine Negative (Negative); Sulfosalicylic Acid Urine Negative (Negative)
[2019-11-14] MEDS: metroNIDAZOLE 500 MG/100 ML BAG IV SCH (23:56)
[2019-11-15] MEDS ORDERED: CALCIUM CARBONATE 500 MG CHEWABLE TAB PO PRN (06:01)
[2019-11-15 06:39] LABS: Basophils # (auto) 0.01 K/uL (0-0.2); Basophils % (auto) 0.1 %; Eosinophils # (auto) 0.03 K/uL (0-0.5); Eosinophils % (auto) 0.4 %; Hematocrit (blood only) 31.5 % (42-52); Hemoglobin 10.8 g/dL (14.0-18.0); Immature Granulocytes # (auto) 0.05 K/uL (0.00-0.02); Immature Granulocytes % (auto) 0.6 %; Lymphocytes # (auto) 0.61 K/uL (1.2-3.4); Lymphocytes % (auto) 7.2 %; Mean Corpuscular Hemoglobin 29.6 pg (25-34); Mean Corpuscular Hgb Conc 34.3 g/dL (32-36); Mean Corpuscular Volume 86.3 fL (80-100); Monocytes % (auto) 10.7 %; Neutrophils # (auto) 6.85 K/uL (1.4-6.5); Platelet Count 221 K/uL (130-400); RDW Coefficient of Variation 13.1 % (11.5-14.5); RDW Standard Deviation 41.7 fL (36.4-46.3); Red Blood Count 3.65 M/uL (4.7-6.1); White Blood Count 8.45 K/uL (4.8-10.8)
[2019-11-15 07:20] LABS: Albumin Level 1.7 gm/dl (3.4-5.0); BUN Creatinine Ratio 14.6 (10-20); Bilirubin,Total 0.6 mg/dl (0.2-1); Calcium 7.6 mg/dl (8.5-10.1); Creatinine Clr Calc Pharmacy 66.5 ml/min; Est GFR (African American) 99.3; Est GFR (Non-African American) 85.7; Potassium 3.4 mmol/L (3.5-5.1)
[2019-11-15] MEDS: metroNIDAZOLE 500 MG/100 ML BAG IV SCH ×2 (07:20→15:00)
[2019-11-15 07:21] LABS: Albumin Globulin Ratio 0.4 (0.9-2); Globulin 3.9 gm/dl (2.5-4.0); Total Protein 5.6 gm/dl (6.4-8.2)
[2019-11-15] MEDS: TAMSULOSIN HCL 0.4 MG CAP PO SCH (08:44)
[2019-11-15] MEDS: CIPROFLOXACIN 400 MG/200 ML BAG IV SCH (08:44)
[2019-11-15] MEDS ORDERED: CYANOCOBALAMIN (VITAMIN B-12) 2,500 MCG TAB.SUBL SL SCH (09:00)
[2019-11-15] MEDS ORDERED: MULTIVITAMIN TAB PO SCH (09:00)
[2019-11-15] MEDS ORDERED: hydroCHLOROthiazide 25 MG TAB PO SCH (09:00)
--- NOTE | 2019-11-15 10:32 | Gastrointestinal Consultation ---
Date of Consultation November 15, 2019 Assessment & Plan (1) Diverticulitis: Has acute on chronic complicated diverticulitis with both abscess as well as fistulization. This is mainly a surgical managed disease likely with both urology as well as general/colorectal surgery. I agree with IV antibiotics, would ask ID for input for antibiotics, may need to have them broadened given that he is only on Cipro Flagyl at this time. However fortunately, he is doing very well without signs of septicemia or urgent need for surgical therapy. Would ask for general surgery formal input, for recommendations of follow-up imaging, antibiotics, and timing of surgery. Given his complicated nature of disease, unlikely that a preoperative colonoscopy will change any anticipated management. But will defer to surgical opinion. In the interim would continue with IV antibiotics, and symptomatic care. Consider liquid diet if okay with surgery. History of Present Illness Reason for Consultation: Complicated diverticulitis with perforation, abscess, and fistulization. Attending Physician: Elvi Tellez MD History of Present Illness This is an 79-year-old gentleman with no significant past medical history who came to the ER yesterday with diarrhea and abdominal pain for 2 months as well as weight loss. He states that he has had smoldering symptoms for a number of weeks with left lower quadrant discomfort, and decreased stooling. He has had this occurring with him since the 1970s he states, he usually decreases his diet and it resolves on its own. He had become increasingly weak, has noticed over the last week at the end of his urination he has air that is spelled. And at the concern of his family was brought to the emergency room. Here he was found to have acute diverticulitis with complications including fistulization with adjacent small bowel, urinary bladder with abscesses that were up to nearly 4 cm in size. He denies any fevers or chills surprisingly, he does admit to anorexia and decreased stool output. Notes no blood in his stool or urine. Has had a colonoscopy remotely at the [facility] but nothing recently, also to noted to have electrolyte derangements with hyponatremia as well as hypokalemia. This morning he is without significant complaint, feels that his pain is well controlled to minimal in nature, and would like to go home as soon as possible. Allergies Allergy/AdvReac Type Severity Reaction Status Date / Time No Known Allergies Allergy Verified 11/14/19 15:02 Home Medications Home Medications Medication Instructions Recorded Confirmed Type albuterol sulfate 90 mcg/actuation 1 puffs INH Q6H PRN 10/01/19 11/14/19 History aerosol inhaler cyanocobalamin (vitamin B-12) 5,000 mcg PO DAILY 10/01/19 11/14/19 History 5,000 mcg capsule hydrochlorothiazide 12.5 mg capsule 12.5 mg PO DAILY 10/01/19 11/14/19 History multivitamin 1 tab PO DAILY 10/01/19 11/14/19 History tamsulosin 0.4 mg capsule 0.4 mg PO DAILY 10/01/19 11/14/19 History sulfamethoxazole 800 1 tab PO BID 10 Days #20 tab 11/12/19 11/14/19 Rx mg-trimethoprim 160 mg tablet Patient History Medical History B12 deficiency BPH (benign prostatic hyperplasia) Diverticulitis Dyslipidemia Rosacea Surgical History S/P tonsillectomy Social History Preferred Language: Lebanese Communication Ability: Effective Visual Impairment: No Limitations Hearing Ability: Normal Program Schedule Clerk Required: No Beliefs That Will Affect Care: None marital status: Current Living Situation: Spouse current occupational status: employed and retired current occupation: self employed, [employer] Feels Safe at Home: Yes Smoking Status: Former smoker Tobacco Type: cigarettes and smokeless tobacco ; packs per day: 1 ; Hx Alcohol Use: Yes Alcohol type: beer Alcohol Intake Frequency: Rarely Hx Substance Use: No Childhood Exposure to Second-Hand Smoke: Yes caffeine: Yes (2 cups coffee day) during the past year weight has: remained stable Dental Care, Regularly: No Physical Activity Frequency: Does not Exercise Seatbelt Use: never Sunscreen Use: Yes Review of Systems Review of Systems: All systems reviewed & are unremarkable except as noted in HPI & below Results & Data Vital Signs (Past 12 Hours) Vital Signs Temp Pulse Resp BP Pulse Ox 11/15/19 08:27 37.3 C 98 H 18 108/68 98 11/14/19 23:16 37.0 C 80 16 102/63 98
--- NOTE | 2019-11-15 10:59 | Urology Consultation ---
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 Fecaluria, pneumaturia Fortunately, he is hemodynamically stable and feeling okay right now Ultimately, I think he needs a complete work-up and likely surgical repairlikely to be led by a colorectal surgery team Limited acute interventions needed from a standpoint At some point in the midst of surgery he will require cystoscopy but this does not need to occur emergently Cover with appropriate antibiotics to avoid progressive infectious issues (Cipro and Flagisidro currently -this is likely appropriate) History of Present Illness Attending Physician: Elvi Tellez MD History of Present Illness 79-year-old gentleman with an unfortunate history of diverticulitisknown diverticular disease for 30+ years Has been managed relatively well with strict dietary restrictions and occasional acute treatments Unfortunately, his symptoms have progressed over the past several months He was admitted with significant abdominal discomfort consistent with diverticulitis Further, he has developed urinary symptoms He has noted air within his urinary stream Debris within his urine Some increased frequency No visible blood Allergies Allergy/AdvReac Type Severity Reaction Status Date / Time No Known Allergies Allergy Verified 11/14/19 15:02 Home Medications Home Medications Medication Instructions Recorded Confirmed Type albuterol sulfate 90 mcg/actuation 1 puffs INH Q6H PRN 10/01/19 11/14/19 History aerosol inhaler cyanocobalamin (vitamin B-12) 5,000 mcg PO DAILY 10/01/19 11/14/19 History 5,000 mcg capsule hydrochlorothiazide 12.5 mg capsule 12.5 mg PO DAILY 10/01/19 11/14/19 History multivitamin 1 tab PO DAILY 10/01/19 11/14/19 History tamsulosin 0.4 mg capsule 0.4 mg PO DAILY 10/01/19 11/14/19 History sulfamethoxazole 800 1 tab PO BID 10 Days #20 tab 11/12/19 11/14/19 Rx mg-trimethoprim 160 mg tablet Patient History Medical History B12 deficiency BPH (benign prostatic hyperplasia) Diverticulitis Dyslipidemia Rosacea Surgical History S/P tonsillectomy Social History Preferred Language: Tamazight Communication Ability: Effective Visual Impairment: No Limitations Hearing Ability: Normal Day Care Provider Required: No Beliefs That Will Affect Care: None marital status: Current Living Situation: Spouse current occupational status: employed and retired current occupation: self employed, [employer] Feels Safe at Home: Yes Smoking Status: Former smoker Tobacco Type: cigarettes and smokeless tobacco ; packs per day: 1 ; Hx Alcohol Use: Yes Alcohol type: beer Alcohol Intake Frequency: Rarely Hx Substance Use: No Childhood Exposure to Second-Hand Smoke: Yes caffeine: Yes (2 cups coffee day) during the past year weight has: remained stable Dental Care, Regularly: No Physical Activity Frequency: Does not Exercise Seatbelt Use: never Sunscreen Use: Yes Review of Systems Constitutional: + fatigue; no fever and no chills Eyes: no worsening vision Ear, Nose, Mouth, Throat: no facial pain and no pain with swallowing Respiratory: no cough and no dyspnea Cardiovascular: no chest pain and no palpitations Gastrointestinal: + abdominal pain, + change in stools, + constipation and + diarrhea/loose stools Genitourinary: + problem reported Musculoskeletal: no back pain Integumentary: no rash and no urticaria Neurologic: no gait abnormality and no unsteadiness Psychiatric: no behavioral changes and no depression Endocrine: no fatigue Physical Exam Constitutional: well developed and well nourished Resting comfortably, nontoxic-appearing Neck: neck nontender Respiratory: normal respiratory effort; no respiratory distress and does not use accessory muscles Cardiovascular: Rate/Rhythm: regular rate Vessels: radial pulses present Extremities: no edema Gastrointestinal (Abdomen): Inspection/Auscultation: abdomen normal to inspection Percussion/Palpation: + abdomen tender (Minimal tenderness to deep palpation in the pelvis) and abdomen soft; no guarding Musculoskeletal: Head/Neck/Chest: normocephalic and head atraumatic Extremities: extremities normal to inspection Skin: no rashes and no lesions Trauma: no evidence of skin trauma Neurologic: awake; not obtunded Speech / Cognition: normal speech Motor/Sensory: no tremor Psychiatric: Orientation: alert and oriented x 3 Genitourinary: no CVA tenderness Urine noted to have debris/feces within it Lymphatic: no lymphadenopathy Results & Data Vital Signs (Past 12 Hours) Vital Signs Temp Pulse Resp BP Pulse Ox 11/15/19 08:27 37.3 C 98 H 18 108/68 98 11/14/19 23:16 37.0 C 80 16 102/63 98 PG Care Time/CCT Total # of Minutes Spent Total Time Spent with Patient: Total time spent is greater than 50% in coordination of care (as documented) at patient's floor/unit and/or counseling patient:
[2019-11-15] MEDS: NSS + 20MEQ KCL 20 MEQ/1,000 ML BAG IV SCH (12:41)
--- NOTE | 2019-11-15 13:07 | Surgery Consultation ---
Date of Consultation November 15, 2019 Assessment & Plan (1) Diverticulitis: with abscesses IV abx if clinically improves can advance diet and repeat CT scan in a few days; if abscesses decreased of same can discharge Present on Admission?: Yes (2) Colovesical fistula: chronic issue once acute diverticular problems resolve can be seen as outpatient at [facility] for definitive repair and resection if clinically does not improve will need transfer to [place] History of Present Illness Attending Physician: Elvi Tellez MD History of Present Illness This is an 79-year-old gentleman with no significant past medical history who came to the ER with diarrhea and abdominal pain for 2 months as well as weight loss. He has had multiple mild attacks like this for years. He has become increasingly weak, has noticed over the last week at the end of his urination he has air that is spelled. He had a CT scan which found acute diverticulitis with complications including fistulization with adjacent small bowel, urinary bladder with abscesses that were up to nearly 4 cm in size. He denies any fevers or chills surprisingly, he does admit to anorexia and decreased stool output. Has had a colonoscopy at the [facility] but nothing recently. This morning he is without significant complaint, feels that his pain is well controlled to minimal in nature. Allergies Allergy/AdvReac Type Severity Reaction Status Date / Time No Known Allergies Allergy Verified 11/14/19 15:02 Home Medications Home Medications Medication Instructions Recorded Confirmed Type albuterol sulfate 90 mcg/actuation 1 puffs INH Q6H PRN 10/01/19 11/14/19 History aerosol inhaler cyanocobalamin (vitamin B-12) 5,000 mcg PO DAILY 10/01/19 11/14/19 History 5,000 mcg capsule hydrochlorothiazide 12.5 mg capsule 12.5 mg PO DAILY 10/01/19 11/14/19 History multivitamin 1 tab PO DAILY 10/01/19 11/14/19 History tamsulosin 0.4 mg capsule 0.4 mg PO DAILY 10/01/19 11/14/19 History sulfamethoxazole 800 1 tab PO BID 10 Days #20 tab 11/12/19 11/14/19 Rx mg-trimethoprim 160 mg tablet Patient History Medical History B12 deficiency BPH (benign prostatic hyperplasia) Diverticulitis Dyslipidemia Rosacea Surgical History S/P tonsillectomy Social History Preferred Language: Ecuadorean Communication Ability: Effective Visual Impairment: No Limitations Hearing Ability: Normal 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 Beliefs That Will Affect Care: None marital status: Current Living Situation: Spouse current occupational status: employed and retired current occupation: self employed, [employer] Feels Safe at Home: Yes Smoking Status: Former smoker Tobacco Type: cigarettes and smokeless tobacco ; packs per day: 1 ; Hx Alcohol Use: Yes Alcohol type: beer Alcohol Intake Frequency: Rarely Hx Substance Use: No Childhood Exposure to Second-Hand Smoke: Yes caffeine: Yes (2 cups coffee day) during the past year weight has: remained stable Dental Care, Regularly: No Physical Activity Frequency: Does not Exercise Seatbelt Use: never Sunscreen Use: Yes Review of Systems Constitutional: no fever and no chills Respiratory: no dyspnea Cardiovascular: no chest pain Gastrointestinal: + abdominal pain; no nausea, no vomiting and no change in bowel habits Genitourinary: + problem reported (air in urine) Musculoskeletal: no back pain Integumentary: no rash Neurologic: + generalized weakness; no localized weakness Psychiatric: no behavioral changes Endocrine: + fatigue; no change in body appearance, no polyphagia and no polyuria Physical Exam Constitutional: well developed and well nourished Eyes: sclerae not anicteric Neck: trachea midline Respiratory: normal respiratory effort, lungs clear to auscultation Cardiovascular: RRR, no murmur, no edema Gastrointestinal (Abdomen): Inspection/Auscultation: abdomen normal to inspection and normal bowel sounds; abdomen not distended Percussion/Palpation: + abdomen tender; no hernia Musculoskeletal: Head/Neck/Chest: + head abnormal to inspection and normocephalic Skin: no rashes, warm and dry Psychiatric: Orientation: alert and oriented x 3 Lymphatic: no lymphadenopathy Results & Data Vital Signs (Past 12 Hours) Vital Signs Temp Pulse Resp BP Pulse Ox 11/15/19 08:27 37.3 C 98 H 18 108/[address] abd pelvis wo con CLINICAL HISTORY: 79 years-old Male presenting with abd pain, weight loss, confu jacinda, hx of diverticulitis. TECHNIQUE: Multidetector CT of the abdomen and pelvis was performed without the use of intravenous contrast. IV contrast: None. One or more dose lowering techniques were used consistent with the principles of ALARA (as low as reasonably achievable), including automatic exposure control, mA or kV adjustment to individual patient size, and/or use of iterative reconstruction. COMPARISON: None. CT DOSE (mGy.cm): The estimated cumulative dose is 1089.85. FINDINGS: Underwriting Clerk topogram: Unremarkable. Lung bases: Trace aortic valve calcification. Top normal heart size. Int raventricular blood pool may be slightly less dense than adjacent myocardium. No pericardial or pleural effusion. Reticular peripheral and subpleural predominant infiltrates. Trace bronchiectasis may be present. Few cysts or emphysema also noted. Liver: Normal morphology. Normal density. Biliary: No gross biliary ductal dilatation allowing for noncontrast technique. Normal gallbladder. Pancreas: Moderate parenchymal atrophy. Spleen: Normal noncontrast appearance. Adrenal glands: 2.1 cm nodule in the right adrenal gland compatible with benign adenoma by density. Normal noncontrast appearance of the left adrenal gland. Kidneys and ureters: Normal noncontrast appearance. No nephrolithiasis. No hydronephrosis. Normal ureters. Bladder: Gas in the urinary bladder with a fistula suspected to adjacent bowel along the bladder dome. The bladder is incompletely distended with focal wall thickening of the bladder dome. Pelvic organs: Prostate enlargement likely secondary to benign prostatic hyperplasia. Bowel: Significant wall thickening of the sigmoid colon. This region is also affected by diverticulosis. Trace pericolonic inflammatory change in this region. There is suspected fistulization with adjacent bowel arising from the proximal sigmoid colon. A collection is suggested in the left lower quadrant measuring approximately 3.5 cm. This may either connect or be adjacent to a se parate possible collection involving the overlying abdominal musculature measuring 3.7 cm. Fistulization with an adjacent loop of small bowel as well as the bladder dome is suspected along the anteromedial aspect (series 5 image 352). Mild diverticulosis of the descending colon. Mild stool burden throughout normal caliber colon. The appendix is normal. No bowel obstruction. Peritoneal cavity: Inflammatory change in the left lower quadrant with infiltrated mesentery. Fluid collections containing feces and gas as measured above. No significant free intraperitoneal fluid. No free intraperitoneal gas apart from the loculated collections. Lymph nodes: No gross lymphadenopathy allowing for noncontrast technique. Vasculature: Atherosclerosis of the normal caliber abdominal aorta. Abdominal wall: Infiltration of the small fat-containing left inguinal hernia along the inner ring. Small fat-containing right inguinal hernia also noted. Musculoskeletal: Degenerative changes of the spine. IMPRESSION: 1. Extensive wall thickening of the sigmoid colon with pericolonic inflammatory change and diverticulosis suggesting chronic diverticular disease/circular muscle hyperplasia with superimposed complicated acute diverticulitis. Fistulization suspected with the adjacent urinary bladder, loops of small bowel, and multiple gas and feces containing collections. These collections presumably represent abscesses and measure up to 3.7 cm. These are not well delineated in the absence of intravenous and oral contrast. An underlying sigmoid colon neoplasm is difficult to exclude and colonoscopy should be performed after treatment. 2. Chronic lung disease.
--- NOTE | 2019-11-15 17:03 | Hospitalist Progress Note ---
Date of Service November 15, 2019 Assessment & Plan (1) Diverticulitis: * Complicated Acute on chronic diverticulitis with fistulization and multiple intra-abdominal abscesses-- 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 concern for sigmoid malignancy * CT A/P with extensive wall thickening of the sigmoid colon with pericolonic inflammatory change and diverticulosis sug chronic diverticular disease/circ ular muscle hyperplasia with superimposed complicated acute diverticulitis. Fistulization suspected with the adjacent urinary bladder, loops of small bowel, and multiple gas and feces containing collections. presum represent abscesses and measure up to 3.7cm * without signs of septicemia or urgent need for surgical therapy currently * Continue IV abx Cipro/Flagyl * General Surgery -- per conversation, continue IV abx until saturday, repeat CT A/P , could go home on po abx if improvement and follow up with colorectal surgery at [facility] for definitive treatment. If patient spikes temp, would transfer to tertiary care * Urology Consult- appreciate input * GI consult - appreciate input-defers to general surgery, no colonoscopy indicated at this time * ID Consult --contacted by phone and recommended switching to IV ertapenem for ease of administration if ends up needing long-term IV antibiotics with once daily dosing; no need for fluconazole at this point * Stool cultures negative currently * Will keep n.p.o. as feeding him could "fuel the fire" with his ongoing abscesses-surgery says consider advancing diet if clinical improvement with IV antibiotics * Hold noncritical p.o. meds from home such as multivitamin, B12 supplement, and HCTZ while providing IV fluids * Continue IV fluids while n.p.o. * Follow CBC, BMP, magnesium, phosphorus . (2) Colitis: * As above (3) Colovesical fistula: * As above, with fecaluria and pneumaturia * Urology involved and thinks ultimately he needs complete work-up and likely surgical repair to be led by a colorectal surgery team. Limited acute interventions needed from a standpoint. At some point he will require cystoscopy but not emergently and agreed with continued use of antibiotics (4) Weakness: * PT/OT -- weakness likely related to acute illness diverticulitis/abscess/urinary tract infection/fistula. * Treat underlying problem as above (5) Abscess: * As above (6) Fistula: * As the above (7) Hyponatremia: * Improved * Sodium 128 on admission * IVF as ordered * Na 132 today * Continue to monitor (8) B12 deficiency: * B12 level 1287 * Hold home B12 supplement while n.p.o. (9) BPH (benign prostatic hyperplasia): * Patient with hematuria-- related to BPH and or urinary tract infection, or more likely fistula/stool in urine * Covering for urinary tract infection with antibiotics as above- monitor culture, however did receive Bactrim prior to admission * H/H 10.8/31.5 * Continue home tamsulosin 0.4mg daily (10) Dyslipidemia: * H/o * Lipid panel acceptable * Not on any home medications at this time (11) History of chronic cough: * Continue albuterol sulfate 1 puff every 6 hours as needed. (12) Hypertension: * BPs low normal -- currently 110/69 * Will hold home hydrochlorothiazide 12.5 mg p.o. daily to prevent dehydration/constipation -- would resume if BP elevated * Continue to monitor BP (13) Hematuria: * Most likely related to urinary tract infection but could be related to BPH as well. * Urology consult -- appreciate input (14) Elevated INR: * Elevated at 1.3 today * Continue to monitor * Holding HCTZ and providing IV fluids (15) DVT prophylaxis: * SCDs, add Lovenox Dispo: additional 3 days IV abx, repeat abdominal imaging saturday and possible outpatient follow up with colorectal surgery for definitive treatment if abscesses are improving Note: If patient spikes temp or becomes unstable, would transfer to [place] for colorectal surgery evaluation Supervising Physician Co-Signing Physician Notes PA Supervision Note: I did not personally see or examine the patient today, but I verified all ortiz points of MEAGHAN Blandon's assessment and plan with the following exceptions/additions: Changes made to assessment and plan as above Changed to ertapenem and made n.p.o. Subjective Patient with continued LLQ pain, although improved since admission with pain control and antibiotics. States he was seen by Dr. Castellanos and Dr. Stallworth and was told that he may be able to be managed for his acute infectious process with antibiotics for now and then follow up with colorectal surgeon as outpatient. States he has been battling with diverticulitis flares since 1985 and he had been able to manage them fairly well as outpatient with diet and medications. He states his appetite is decreased, and he has lost 4 pounds in the last week. He has also lost almost 20 pounds in the last two months. He does state that his granddaughter with spina bifida at [facility] ten weeks ago, and became tearful when talking about her. Review of Systems Review of Systems: All systems reviewed & are unremarkable except as noted in HPI & below Constitutional: + fever, + chills, + weakness (generalized), + anorexia and + weight loss Ear, Nose, Mouth, Throat: no tinnitus and no sore throat Respiratory: + cough; no dyspnea Cardiovascular: no chest pain, no palpitations and no edema Gastrointestinal: + abdominal pain; no nausea, no vomiting, no hematemesis and no melena Genitourinary: + problem reported (air in urine,); no difficulty urinating and no urinary incontinence Musculoskeletal: no swelling and no myalgia Integumentary: no rash and no lesions Neurologic: no numbness and no paresthesia Psychiatric: no anxiety and no hallucinations Endocrine: + fatigue Physical Exam Constitutional: WD/WN, vitals as above no acute distress Eyes: + anicteric sclerae and PERRL ENMT: top dentures Neck: trachea midline, no thyromegaly Respiratory: normal respiratory effort, lungs clear to auscultation Cardiovascular: RRR, no murmur, no edema Gastrointestinal (Abdomen): Inspection/Auscultation: normal bowel sounds; abdomen not distended Percussion/Palpation: + abdomen tender (LLQ); abdomen not rigid Musculoskeletal: Head/Neck/Chest: + head abnormal to inspection Skin: no rashes, warm and dry Results & Data Vital Signs (Past 12 Hours) Vital Signs Temp Pulse Resp BP Pulse Ox 11/15/19 15:15 37.1 C 88 16 110/69 98 11/15/19 08:27 37.3 C 98 H 18 108/68 98 Laboratory Results 11/15/19 11/15/19 11/15/19 Range/Units 14:25 14:25 05:41 WBC (4.8-10.8) K/uL RBC (4.7-6.1) M/uL Hgb (14.0-18.0) g/dL Hct (42-52) % MCV (80-100) fL MCH (25-34) pg MCHC (32-36) g/dL RDW Std Deviation (36.4-46.3) fL RDW Coeff of Brandan (11.5-14.5) % Plt Count (130-400) K/uL MPV (7.4-10.4) fL Immature Gran % (Auto) % Neut % (Auto) % Lymph % (Auto) % [place] % (Auto) % Eos % (Auto) % Baso % (Auto) % Immature Gran # (Auto) (0.00-0.02) K/uL Neut # (Auto) (1.4-6.5) K/uL Lymph # (Auto) (1.2-3.4) K/uL [place] # (Auto) (0.11-0.59) K/uL Eos # (Auto) (0-0.5) K/uL Baso # (Auto) (0-0.2) K/uL Sodium 132 L (136-145) mmol/L Potassium 3.4 L (3.5-5.1) mmol/L Chloride 99 (98-107) mmol/L Carbon Dioxide 29 (21-32) mmol/L Anion Gap 4.0 (3-11) BUN 11 (7-18) mg/dl Creatinine 0.77 (0.6-1.4) mg/dl Est Cr Clr Drug Dosing 66.5 ml/min Est GFR ( Amer) 99.3 Est GFR (Non-Af Amer) 85.7 BUN/Creatinine Ratio 14.6 (10-20) Glucose 79 (70-99) mg/dl Calcium 7.6 L (8.5-10.1) mg/dl Total Bilirubin 0.6 (0.2-1) mg/dl AST 30 (15-37) U/L ALT 22 (12-78) U/L Alkaline Phosphatase 72 (45-117) U/L NT-Pro-B Natriuret Pep (0-1800) pg/ml Total Protein 5.6 L (6.4-8.2) gm/dl Albumin 1.7 L (3.4-5.0) gm/dl Globulin 3.9 (2.5-4.0) gm/dl Albumin/Globulin Ratio 0.4 L (0.9-2) Triglycerides 64 (0-150) mg/dl Cholesterol 86 (0-200) mg/dl LDL Cholesterol, Calc 40 mg/dl VLDL Cholesterol, Calc 13 mg/dl HDL Cholesterol 33 mg/dl Cholesterol/HDL Ratio 3 Carcinoembryonic Ag (0-2.5) ng/ml CA 19-9 Antigen Vitamin B12 (211-911) pg/ml TSH (0.300-4.500) uIu/ml Urine Color Urine Appearance (Clear) Urine pH (4.5-7.5) Ur Specific [place] (1.000-1.030) Urine Protein (Negative) Urine Glucose (UA) (Negative) Urine Ketones (Negative) Urine Blood (Negative) Urine Nitrite (Negative) Urine Bilirubin (Negative) Urine Urobilinogen (Negative) Ur Leukocyte Esterase (Negative) Urine WBC (Auto) (0-5) /hpf Urine RBC (Auto) (0-4) /hpf U Hyaline Cast (Auto) (0-5) /lpf U Epithel Cells (Auto) (0-5) /lpf Urine Bacteria (Auto) (Negative) Urine Yeast Stool Occult Bld Scrn Negative (Negative) Stl C. diff Tox B Gene TNP 11/15/19 11/14/19 11/14/19 Range/Units 05:41 21:54 20:09 WBC 8.45 (4.8-10.8) K/uL RBC 3.65 L (4.7-6.1) M/uL Hgb 10.8 L (14.0-18.0) g/dL Hct 31.5 L (42-52) % MCV 86.3 (80-100) fL MCH 29.6 (25-34) pg MCHC 34.3 (32-36) g/dL RDW Std Deviation 41.7 (36.4-46.3) fL RDW Coeff of Brandan 13.1 (11.5-14.5) % Plt Count 221 (130-400) K/uL MPV 9.0 (7.4-10.4) fL Immature Gran % (Auto) 0.6 % Neut % (Auto) 81.0 % Lymph % (Auto) 7.2 % [place] % (Auto) 10.7 % Eos % (Auto) 0.4 % Baso % (Auto) 0.1 % Immature Gran # (Auto) 0.05 H (0.00-0.02) K/uL Neut # (Auto) 6.85 H (1.4-6.5) K/uL Lymph # (Auto) 0.61 L (1.2-3.4) K/uL [place] # (Auto) 0.90 H (0.11-0.59) K/uL Eos # (Auto) 0.03 (0-0.5) K/uL Baso # (Auto) 0.01 (0-0.2) K/uL Sodium (136-145) mmol/L Potassium (3.5-5.1) mmol/L Chloride (98-107) mmol/L Carbon Dioxide (21-32) mmol/L Anion Gap (3-11) BUN (7-18) mg/dl Creatinine (0.6-1.4) mg/dl Est Cr Clr Drug Dosing ml/min Est GFR ( Amer) Est GFR (Non-Af Amer) BUN/Creatinine Ratio (10-20) Glucose (70-99) mg/dl Calcium (8.5-10.1) mg/dl Total Bilirubin (0.2-1) mg/dl AST (15-37) U/L ALT (12-78) U/L Alkaline Phosphatase (45-117) U/L NT-Pro-B Natriuret Pep (0-1800) pg/ml Total Protein (6.4-8.2) gm/dl Albumin (3.4-5.0) gm/dl Globulin (2.5-4.0) gm/dl Albumin/Globulin Ratio (0.9-2) Triglycerides (0-150) mg/dl Cholesterol (0-200) mg/dl LDL Cholesterol, Calc mg/dl VLDL Cholesterol, Calc mg/dl HDL Cholesterol mg/dl Cholesterol/HDL Ratio Carcinoembryonic Ag (0-2.5) ng/ml CA 19-9 Antigen Pending Vitamin B12 (211-911) pg/ml TSH (0.300-4.500) uIu/ml Urine Color Yellow Urine Appearance Turbid A (Clear) Urine pH 7.5 (4.5-7.5) Ur Specific [place] 1.012 (1.000-1.030) Urine Protein Negative (Negative) Urine Glucose (UA) Negative (Negative) Urine Ketones Negative (Negative) Urine Blood 3+ H (Negative) Urine Nitrite Negative (Negative) Urine Bilirubin Negative (Negative) Urine Urobilinogen Negative (Negative) Ur Leukocyte Esterase 3+ H (Negative) Urine WBC (Auto) >30 H (0-5) /hpf Urine RBC (Auto) 5-10 H (0-4) /hpf U Hyaline Cast (Auto) 1-5 (0-5) /lpf U Epithel Cells (Auto) >30 H (0-5) /lpf Urine Bacteria (Auto) Negative (Negative) Urine Yeast Not Reportable Stool Occult Bld Scrn (Negative) Stl C. diff Tox B Gene 11/14/19 11/14/19 11/14/19 Range/Units 20:09 20:09 20:09 WBC (4.8-10.8) K/uL RBC (4.7-6.1) M/uL Hgb (14.0-18.0) g/dL Hct (42-52) % MCV (80-100) fL MCH (25-34) pg MCHC (32-36) g/dL RDW Std Deviation (36.4-46.3) fL RDW Coeff of Brandan (11.5-14.5) % Plt Count (130-400) K/uL MPV (7.4-10.4) fL Immature Gran % (Auto) % Neut % (Auto) % Lymph % (Auto) % [place] % (Auto) % Eos % (Auto) % Baso % (Auto) % Immature Gran # (Auto) (0.00-0.02) K/uL Neut # (Auto) (1.4-6.5) K/uL Lymph # (Auto) (1.2-3.4) K/uL [place] # (Auto) (0.11-0.59) K/uL Eos # (Auto) (0-0.5) K/uL Baso # (Auto) (0-0.2) K/uL Sodium (136-145) mmol/L Potassium (3.5-5.1) mmol/L Chloride (98-107) mmol/L Carbon Dioxide (21-32) mmol/L Anion Gap (3-11) BUN (7-18) mg/dl Creatinine (0.6-1.4) mg/dl Est Cr Clr Drug Dosing ml/min Est GFR ( Amer) Est GFR (Non-Af Amer) BUN/Creatinine Ratio (10-20) Glucose (70-99) mg/dl Calcium (8.5-10.1) mg/dl Total Bilirubin (0.2-1) mg/dl AST (15-37) U/L ALT (12-78) U/L Alkaline Phosphatase (45-117) U/L NT-Pro-B Natriuret Pep 839 (0-1800) pg/ml Total Protein (6.4-8.2) gm/dl Albumin (3.4-5.0) gm/dl Globulin (2.5-4.0) gm/dl Albumin/Globulin Ratio (0.9-2) Triglycerides (0-150) mg/dl Cholesterol (0-200) mg/dl LDL Cholesterol, Calc mg/dl VLDL Cholesterol, Calc mg/dl HDL Cholesterol mg/dl Cholesterol/HDL Ratio Carcinoembryonic Ag 3.2 H (0-2.5) ng/ml CA 19-9 Antigen Vitamin B12 1287 H (211-911) pg/ml TSH 3.200 (0.300-4.500) uIu/ml Urine Color Urine Appearance (Clear) Urine pH (4.5-7.5) Ur Specific [place] (1.000-1.030) Urine Protein (Negative) Urine Glucose (UA) (Negative) Urine Ketones (Negative) Urine Blood (Negative) Urine Nitrite (Negative) Urine Bilirubin (Negative) Urine Urobilinogen (Negative) Ur Leukocyte Esterase (Negative) Urine WBC (Auto) (0-5) /hpf Urine RBC (Auto) (0-4) /hpf U Hyaline Cast (Auto) (0-5) /lpf U Epithel Cells (Auto) (0-5) /lpf Urine Bacteria (Auto) (Negative) Urine Yeast Stool Occult Bld Scrn (Negative) Stl C. diff Tox B Gene Diagnostic Findings ECHO Normal LV size and systolic function. EF 60-65%. No regional wall motion abnormalities. No left ventricular hypertrophy. Right atrium is mildly dilated No significant valvular abnormalities visualized Normal estimated right ventricular systolic pressure No prior study available for comparison CT Head w/wo IMPRESSION: 1. No acute intracranial abnormality. CT Abd/pelvis w/o IMPRESSION: 1. Extensive wall thickening of the sigmoid colon with pericolonic inflammatory change and diverticulosis suggesting chronic diverticular disease/circular muscle hyperplasia with superimposed complicated acute diverticulitis. Fistulization suspected with the adjacent urinary bladder, loops of small bowel, and multiple gas and feces containing collections. These collections presumably represent abscesses and measure up to 3.7 cm. These are not well delineated in the absence of intravenous and oral contrast. An underlying sigmoid colon neoplasm is difficult to exclude and colonoscopy should be performed after treatment. 2. Chronic lung disease. PG Care Time/CCT Total # of Minutes Spent Total Time Spent with Patient: Total time spent is greater than 50% in coordina tion of care (as documented) at patient's floor/unit and/or counseling patient:
[2019-11-15] MEDS: ERTAPENEM SODIUM 1,000 MG in SODIUM CHLORIDE 0.9% 50 ML IV SCH (20:34)
[2019-11-15] MEDS: ENOXAPARIN INJ 40 MG/0.4 ML SYR SQ SCH (22:03)
[2019-11-16] MEDS: NSS + 20MEQ KCL 20 MEQ/1,000 ML BAG IV SCH ×2 (03:42→11:33)
[2019-11-16 06:05] LABS: Basophils # (auto) 0.01 K/uL (0-0.2); Basophils % (auto) 0.1 %; Eosinophils # (auto) 0.03 K/uL (0-0.5); Eosinophils % (auto) 0.3 %; Hematocrit (blood only) 30.6 % (42-52); Hemoglobin 10.2 g/dL (14.0-18.0); Immature Granulocytes # (auto) 0.06 K/uL (0.00-0.02); Immature Granulocytes % (auto) 0.7 %; Lymphocytes # (auto) 1.15 K/uL (1.2-3.4); Mean Corpuscular Hemoglobin 29.4 pg (25-34); Mean Corpuscular Hgb Conc 33.3 g/dL (32-36); Mean Corpuscular Volume 88.2 fL (80-100); Mean Platelet Volume 8.8 fL (7.4-10.4); Monocytes # (auto) 1.03 K/uL (0.11-0.59); Monocytes % (auto) 11.7 %; Neutrophils # (auto) 6.55 K/uL (1.4-6.5); Neutrophils % (auto) 74.2 %; Platelet Count 230 K/uL (130-400); RDW Coefficient of Variation 13.2 % (11.5-14.5); RDW Standard Deviation 42.5 fL (36.4-46.3); Red Blood Count 3.47 M/uL (4.7-6.1); White Blood Count 8.83 K/uL (4.8-10.8)
[2019-11-16 06:29] LABS: Albumin Level 1.6 gm/dl (3.4-5.0); Calcium 7.6 mg/dl (8.5-10.1); Creatinine Clr Calc Pharmacy 72.1 ml/min; Est GFR (African American) 102.7; Est GFR (Non-African American) 88.6; Magnesium 1.7 mg/dl (1.8-2.4); Potassium 3.4 mmol/L (3.5-5.1)
[2019-11-16 06:32] LABS: Albumin Globulin Ratio 0.4 (0.9-2); Bilirubin,Total 0.6 mg/dl (0.2-1); Globulin 3.7 gm/dl (2.5-4.0); Phosphorus 2.7 mg/dl (2.5-4.9); Total Protein 5.3 gm/dl (6.4-8.2)
[2019-11-16] MEDS: TAMSULOSIN HCL 0.4 MG CAP PO SCH (08:59)
[2019-11-16] MEDS ORDERED: MAGNESIUM SULFATE / D5W 1 GM/100 ML BAG IV ONE (09:15)
--- NOTE | 2019-11-16 09:59 | Infectious Disease Consult ---
Date of Consultation November 16, 2019 Assessment & Plan (1) Diverticulitis: agree with continued IV abx as he is currently npo. ertapenem adequate. blood cultures negative and final. would suggest 21 days total abx, can change to po augmentin upon d/c. Pt is for repeat abd imaging, if abscess increased in size, would suggest transfer, fistula will require surgical repair. no further ID recs. (2) Abscess: (3) Fistula: History of Present Illness Attending Physician: Rory Cornell MD pt admitted with 2 months of ongoing abd pain and min 20lb wt loss, did not seek care. In ER ct done showing sigmoid diverticulitis with abscess measuring 3.7cm and likely bladder fistula. He is being followed by multiple specialities for this, no plan for OR, if worse, plan is for transfer, he is currently npo. he was on IV cipro and hanley and tolerating well. changed to ertapenem last night. tolerating well. states he is feeling much better today, slept well. only complaint is of min llq pain. wbc 8, creat 0.7, procalcitonin 0.1, Blood cultures negative. denies cp, sob, cough, no gu symptoms Allergies Allergy/AdvReac Type Severity Reaction Status Date / Time No Known Allergies Allergy Verified 11/14/19 15:02 Home Medications Home Medications Medication Instructions Recorded Confirmed Type albuterol sulfate 90 mcg/actuation 1 puffs INH Q6H PRN 10/01/19 11/14/19 History aerosol inhaler cyanocobalamin (vitamin B-12) 5,000 mcg PO DAILY 10/01/19 11/14/19 History 5,000 mcg capsule hydrochlorothiazide 12.5 mg capsule 12.5 mg PO DAILY 10/01/19 11/14/19 History multivitamin 1 tab PO DAILY 10/01/19 11/14/19 History tamsulosin 0.4 mg capsule 0.4 mg PO DAILY 10/01/19 11/14/19 History sulfamethoxazole 800 1 tab PO BID 10 Days #20 tab 11/12/19 11/14/19 Rx mg-trimethoprim 160 mg tablet Patient History Medical History B12 deficiency BPH (benign prostatic hyperplasia) Diverticulitis Dyslipidemia Rosacea Surgical History S/P tonsillectomy Social History Preferred Language: Maltese Communication Ability: Effective Visual Impairment: No Limitations Hearing Ability: Normal Oyster Culturist Required: No Beliefs That Will Affect Care: None marital status: Current Living Situation: Spouse current occupational status: employed and retired current occupation: self employed, [employer] Feels Safe at Home: Yes Smoking Status: Former smoker Tobacco Type: cigarettes and smokeless tobacco ; packs per day: 1 ; Hx Alcohol Use: Yes Alcohol type: beer Alcohol Intake Frequency: Rarely Hx Substance Use: No Childhood Exposure to Second-Hand Smoke: Yes caffeine: Yes (2 cups coffee day) during the past year weight has: remained stable Dental Care, Regularly: No Physical Activity Frequency: Does not Exercise Seatbelt Use: never Sunscreen Use: Yes Review of Systems Review of Systems: All systems reviewed & are unremarkable except as noted in HPI & below Physical Exam Constitutional: WD/WN, vitals as above Eyes: PERRL, conjunctivae normal, anicteric sclerae ENMT: external ear and nose normal, oropharynx normal Neck: normal visual inspection Respiratory: normal respiratory effort, lungs clear to auscultation Cardiovascular: RRR, no murmur, no edema Gastrointestinal (Abdomen): normal bowel sounds, soft, nontender, no hepatosplenomegaly Inspection/Auscultation: abdomen not distended Percussion/Palpation: abdomen soft; abdomen nontender, no guarding and abdomen not rigid Musculoskeletal: no cyanosis or clubbing, extremities motor strength 5/5 Skin: no rashes, warm and dry Psychiatric: A+Ox3, euthymic affect Results & Data Vital Signs (Past 12 Hours) Vital Signs Temp Pulse Resp BP BP Pulse Ox 11/16/19 07:19 36.8 C 80 18 123/77 95 11/15/19 23:10 36.2 C L 74 16 110/70 95 Laboratory Results Microbiology 11/15/19 14:25 Stool Escherichia coli Shiga Toxins Test - Preliminary 11/15/19 14:25 Stool Stool Culture - Preliminary 11/14/19 21:54 Urine,Clean Catch Urine Culture - Final No growth - less than 1,000 colonies/mL. 11/14/19 15:17 Blood Aerobic Blood Culture - Preliminary No growth in Aerobic bottle after 24 hours. 11/14/19 15:17 Blood Anaerobic Blood Culture - Preliminary No growth in Anaerobic bottle after 24 hours. 11/14/19 15:11 Blood Aerobic Blood Culture - Preliminary No growth in Aerobic bottle after 24 hours. 11/14/19 15:11 Blood Anaerobic Blood Culture - Preliminary No growth in Anaerobic bottle after 24 hours. PG Care Time/CCT Total # of Minutes Spent Total Time Spent with Patient: Total time spent is greater than 50% in coordination of care (as documented) at patient's floor/unit and/or counseling patient:
--- NOTE | 2019-11-16 10:07 | Gastroenterology Progress Note ---
Date of Service November 16, 2019 Assessment & Plan (1) Diverticulitis: Pt is a 79 y/o male followed for sigmoid diverticulitis w abscess and fistulization to bladder, small bowels. - Continue IV antibx (currently on Ertapenem per ID's direction) - Surgery following, appreciate recs -> eventual Colorectal Sx evaluation - GI to sign off, recall prn Supervising Physician Co-Signing Physician Notes Attending attestation I have seen, examined this patient, and agree with the findings and above by our mid-level provider ADALBERTO Lizarraga, with the following additions -Clinically doing well, no abdominal pain, normal bowel movement today. -No fevers or chills -GI will sign off -Diet and follow-up imaging/surgical determination per surgery. Subjective Pt currently NPO. He denies any abd pain, n/v. Still having air and pus like discharge when urinating. He had BM today, stools solid, denies any rectal bleeding Review of Systems Review of Systems: All systems reviewed & are unremarkable except as noted in HPI & below Physical Exam Constitutional: WD/WN, vitals as above well groomed, cooperative and comfortable Eyes: PERRL, conjunctivae normal, anicteric sclerae ENMT: external ear and nose normal, oropharynx normal Respiratory: normal respiratory effort, lungs clear to auscultation Cardiovascular: RRR, no murmur, no edema Gastrointestinal (Abdomen): normal bowel sounds, soft, nontender, no hepatosplenomegaly Skin: no rashes, warm and dry no jaundice Psychiatric: A+Ox3, euthymic affect Lymphatic: no lymphedema Results & Data Vital Signs (Past 12 Hours) Vital Signs Temp Pulse Resp BP BP Pulse Ox 11/16/19 07:19 36.8 C 80 18 123/77 95 11/15/19 23:10 36.2 C L 74 16 110/70 95
--- NOTE | 2019-11-16 10:11 | Urology Progress Note ---
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 See recommendations as outlined by Dr. Castellanos in pervious note. Would avoid willson catheter if at all possible. Antibiotics per primary service. Thank you for allowing us to participate in the acute care of Mr. Marvin. Please reconsult us with additional questions, concerns or changes in patient status. Will arrange outpatient followup. Subjective Pt ambulating in room independently this AM. States he is feeling well Still acknowledging pneumaturia and mucous in urine stream, however denies dysuria/urgency/hematuria. He was happy to report he had a formed BM last evening Tolerating PO well No new issues/concerns VSS, labs stable Review of Systems Review of Systems: Constitutional: Some fatigue but improved, Denies fever, chills, sweats, malaise Eyes: Denies problem reported ENMT: Denies dizziness Resp: Denies cough, Denies shortness of breath CV: Denies JVD GI: See HPI : see HPI MS: Denies swelling, stiffness Integ: Denies rash, erythema Neuro: Denies falls, weakness Psych: Denies behavior change Endo: Denies polyphagia, polydipsia Heme: Denies easy bleeding Results & Data Vital Signs (Past 12 Hours) Vital Signs Temp Pulse Resp BP BP Pulse Ox 11/16/19 07:19 36.8 C 80 18 123/77 95 11/15/19 23:10 36.2 C L 74 16 110/70 95 PG Care Time/CCT Total # of Minutes Spent Total Time Spent with Patient: Total time spent is greater than 50% in coordination of care (as documented) at patient's floor/unit and/or counseling patient:
--- NOTE | 2019-11-16 11:41 | Hospitalist Progress Note ---
Date of Service November 16, 2019 Assessment & Plan (1) Diverticulitis: * Complicated Acute on chronic diverticulitis with fistulization and multiple intra-abdominal abscesses-- 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 concern for sigmoid malignancy * without signs of septicemia or urgent need for surgical therapy currently * Continue IV ertapenem per ID, will switch to Augmentin when taking consistent po for 21 days total abx * General Surgery -- per conversation, continue IV abx until Saturday, repeat CT A/P , could go home on po abx if improvement and follow up with colorectal surgery at [facility] for definitive treatment. If patient spikes temp, would transfer to tertiary care * Urology Consult- avoid catheterization * GI consult - appreciate input-defers to general surgery, no colonoscopy indicated at this time * ID Consult * Stool cultures negative * advance diet to clears per surgery . (2) Colitis: * As above (3) Colovesical fistula: * As above, with fecaluria and pneumaturia * Urology involved and thinks ultimately he needs complete work-up and likely surgical repair to be led by a colorectal surgery team. Limited acute interventions needed from a standpoint. At some point he will require cystoscopy but not emergently and agreed with continued use of antibiotics (4) Weakness: * PT/OT -- weakness likely related to acute illness diverticulitis/abscess/urinary tract infection/fistula. (5) Hyponatremia: * Improved * Sodium 128 on admission * IVF as ordered * Na 134 today * continue to hold HCTZ (6) B12 deficiency: * B12 level 1287 * continue B12 supplementation (7) BPH (benign prostatic hyperplasia): * Patient with hematuria-- related to BPH and or urinary tract infection, or more likely fistula/stool in urine * Covering for urinary tract infection with antibiotics as above- monitor culture, however did receive Bactrim prior to admission * H/H 10.8/31.5 * Continue home tamsulosin 0.4mg daily (8) Dyslipidemia: * H/o * Lipid panel acceptable * Not on any home medications at this time (9) History of chronic cough: * Continue albuterol sulfate 1 puff every 6 hours as needed. (10) Hypertension: * BPs wnl * Conitnue to hold home hydrochlorothiazide as above (11) Hematuria: * Most likely related to urinary tract infection but could be related to BPH as well. * Urology consult -- appreciate input (12) Elevated INR: repeat am 1.3 on 11/14 (13) Severe protein-calorie malnutrition: start boost when taking consistent po Albumin 1.6 (14) DVT prophylaxis: * SCDs,Lovenox Dispo: additional 2 days IV abx, repeat abdominal imaging Saturday and possible outpatient follow up with colorectal surgery for definitive treatment if abscesses are improving Note: If patient spikes temp or becomes unstable, would transfer to [place] for colorectal surgery evaluation Subjective Mr. Marvin denies any pain, nausea or vomiting. He did have a bm over the night. He has been ambulating the halls. ROS Constitutional: no chills, aches, sweats or fever Respiratory: no sob,cough, sputum, or wheezing Cardiac: no chest pain, palpitations, edema, orthopnea or lightheadedness GI: no abdominal pain, nausea, vomiting, diarrhea or constipation : no dysuria or hesitancy Extremities: no joint pain or weakness Skin: no rash All other systems reviewed and negative Physical Exam Physical Exam: General: no distress Eyes: normal inspection, PERLL Respiratory: chest non tender, clear to auscultation, normal breath sounds, no respiratory distress, no accessory muscle use Cardiac: regular rate and rhythm, no rub or gallop, no murmur, no edema, no jvd GI/: active bowel sounds, no abd pain or tenderness, soft, non distended Extremities: normal range of motion, normal strength, non tender Neuro/Psych: alert and oriented x 3, normal mood and affect Skin: normal color, dry Results & Data Vital Signs (Past 12 Hours) Vital Signs Temp Pulse Resp BP Pulse Ox 11/16/19 07:19 36.8 C 80 18 123/77 95 PG Care Time/CCT Total # of Minutes Spent Total Time Spent with Patient: Total time spent is greater than 50% in coordination of care (as documented) at patient's floor/unit and/or counseling patient:
--- NOTE | 2019-11-16 14:01 | Surgery Progress Note ---
Date of Service November 16, 2019 Assessment & Plan (1) Diverticulitis: With multiple small abscesses afebrile, no leukocytosis, minimal pain abdomen soft Plan: Continue IV abx advance diet slowly as tolerated plan to repeat CT scan of abd/pelvis Saturday. If stable/improved pt can be discharged with oral abx for 21 days (per ID recs). Will also need close outpatient follow-up with colorectal given colovesical fistula. Colorectal surgeons from [place] outreach to [facility] in which patient can follow-up. If increase in size of abscesses recommend transfer to [facility] for further management. (2) Colovesical fistula: chronic issue once acute diverticular problems resolve can be seen as outpatient at [facility] colorectal outreach for definitive repair and resection if clinically does not improve will need transfer to [place] Discussed with Dr. Duncan who agrees with above and will evaluate patient later this afternoon. Subjective feeling good this morning had liquids, completed whole tray, no pain, nausea or vomiting mild LLQ abdominal pain but improved normal formed bowel movement this am , no blood overall feeling much better Physical Exam Constitutional: WD/WN, vitals as above no acute distress Respiratory: normal respiratory effort; no respiratory distress Gastrointestinal (Abdomen): Inspection/Auscultation: abdomen normal to inspection; abdomen not distended Percussion/Palpation: + abdomen tender (LLQ on deep palpation) and abdomen soft; no guarding and abdomen not rigid Skin: no rashes, warm and dry Psychiatric: A+Ox3, euthymic affect Results & Data Vital Signs (Past 12 Hours) Vital Signs Temp Pulse Resp BP Pulse Ox 11/16/19 07:19 36.8 C 80 18 123/77 95 Laboratory Results 11/16/19 11/16/19 11/15/19 Range/Units 05:19 05:19 14:25 WBC 8.83 (4.8-10.8) K/uL RBC 3.47 L (4.7-6.1) M/uL Hgb 10.2 L (14.0-18.0) g/dL Hct 30.6 L (42-52) % MCV 88.2 (80-100) fL MCH 29.4 (25-34) pg MCHC 33.3 (32-36) g/dL RDW Std Deviation 42.5 (36.4-46.3) fL RDW Coeff of Brandan 13.2 (11.5-14.5) % Plt Count 230 (130-400) K/uL MPV 8.8 (7.4-10.4) fL Immature Gran % (Auto) 0.7 % Neut % (Auto) 74.2 % Lymph % (Auto) 13.0 % [place] % (Auto) 11.7 % Eos % (Auto) 0.3 % Baso % (Auto) 0.1 % Immature Gran # (Auto) 0.06 H (0.00-0.02) K/uL Neut # (Auto) 6.55 H (1.4-6.5) K/uL Lymph # (Auto) 1.15 L (1.2-3.4) K/uL [place] # (Auto) 1.03 H (0.11-0.59) K/uL Eos # (Auto) 0.03 (0-0.5) K/uL Baso # (Auto) 0.01 (0-0.2) K/uL Sodium 134 L (136-145) mmol/L Potassium 3.4 L (3.5-5.1) mmol/L Chloride 100 (98-107) mmol/L Carbon Dioxide 28 (21-32) mmol/L Anion Gap 6.0 (3-11) BUN 8 (7-18) mg/dl Creatinine 0.71 (0.6-1.4) mg/dl Est Cr Clr Drug Dosing 72.1 ml/min Est GFR ( Amer) 102.7 Est GFR (Non-Af Amer) 88.6 BUN/Creatinine Ratio 11.0 (10-20) Glucose 82 (70-99) mg/dl Calcium 7.6 L (8.5-10.1) mg/dl Phosphorus 2.7 (2.5-4.9) mg/dl Magnesium 1.7 L (1.8-2.4) mg/dl Total Bilirubin 0.6 (0.2-1) mg/dl AST 25 (15-37) U/L ALT 19 (12-78) U/L Alkaline Phosphatase 71 (45-117) U/L Total Protein 5.3 L (6.4-8.2) gm/dl Albumin 1.6 L (3.4-5.0) gm/dl Globulin 3.7 (2.5-4.0) gm/dl Albumin/Globulin Ratio 0.4 L (0.9-2) Stool Occult Bld Scrn Negative (Negative) Stl C. diff Tox B Gene 11/15/19 Range/Units 14:25 WBC (4.8-10.8) K/uL RBC (4.7-6.1) M/uL Hgb (14.0-18.0) g/dL Hct (42-52) % MCV (80-100) fL MCH (25-34) pg MCHC (32-36) g/dL RDW Std Deviation (36.4-46.3) fL RDW Coeff of Brandan (11.5-14.5) % Plt Count (130-400) K/uL MPV (7.4-10.4) fL Immature Gran % (Auto) % Neut % (Auto) % Lymph % (Auto) % [place] % (Auto) % Eos % (Auto) % Baso % (Auto) % Immature Gran # (Auto) (0.00-0.02) K/uL Neut # (Auto) (1.4-6.5) K/uL Lymph # (Auto) (1.2-3.4) K/uL [place] # (Auto) (0.11-0.59) K/uL Eos # (Auto) (0-0.5) K/uL Baso # (Auto) (0-0.2) K/uL Sodium (136-145) mmol/L Potassium (3.5-5.1) mmol/L Chloride (98-107) mmol/L Carbon Dioxide (21-32) mmol/L Anion Gap (3-11) BUN (7-18) mg/dl Creatinine (0.6-1.4) mg/dl Est Cr Clr Drug Dosing ml/min Est GFR ( Amer) Est GFR (Non-Af Amer) BUN/Creatinine Ratio (10-20) Glucose (70-99) mg/dl Calcium (8.5-10.1) mg/dl Phosphorus (2.5-4.9) mg/dl Magnesium (1.8-2.4) mg/dl Total Bilirubin (0.2-1) mg/dl AST (15-37) U/L ALT (12-78) U/L Alkaline Phosphatase (45-117) U/L Total Protein (6.4-8.2) gm/dl Albumin (3.4-5.0) gm/dl Globulin (2.5-4.0) gm/dl Albumin/Globulin Ratio (0.9-2) Stool Occult Bld Scrn (Negative) Stl C. diff Tox B Gene TNP
[2019-11-16] MEDS: ENOXAPARIN INJ 40 MG/0.4 ML SYR SQ SCH (20:23)
[2019-11-16] MEDS: ERTAPENEM SODIUM 1,000 MG in SODIUM CHLORIDE 0.9% 50 ML IV SCH (20:24)
[2019-11-17] MEDS: NSS + 20MEQ KCL 20 MEQ/1,000 ML BAG IV SCH ×2 (00:25→11:19)
[2019-11-17 05:36] LABS: Hematocrit (blood only) 33.2 % (42-52); Hemoglobin 11.2 g/dL (14.0-18.0); Mean Corpuscular Hemoglobin 29.7 pg (25-34); Mean Corpuscular Hgb Conc 33.7 g/dL (32-36); Mean Corpuscular Volume 88.1 fL (80-100); Platelet Count 246 K/uL (130-400); RDW Coefficient of Variation 13.3 % (11.5-14.5); Red Blood Count 3.77 M/uL (4.7-6.1)
[2019-11-17 05:47] LABS: INR 1.4 (0.9-1.1); Prothrombin Time 13.9 Seconds (9.0-12.0)
[2019-11-17 06:05] LABS: Albumin Globulin Ratio 0.4 (0.9-2); Albumin Level 1.6 gm/dl (3.4-5.0); BUN Creatinine Ratio 11.8 (10-20); Bilirubin,Total 0.6 mg/dl (0.2-1); Calcium 7.8 mg/dl (8.5-10.1); Creatinine Clr Calc Pharmacy 74.2 ml/min; Est GFR (African American) 103.9; Est GFR (Non-African American) 89.7; Total Protein 5.6 gm/dl (6.4-8.2)
[2019-11-17 06:21] LABS: Basophils # (auto) 0.02 K/uL (0-0.2); Basophils % (auto) 0.2 %; Eosinophils # (auto) 0.04 K/uL (0-0.5); Eosinophils % (auto) 0.4 %; Immature Granulocytes # (auto) 0.05 K/uL (0.00-0.02); Immature Granulocytes % (auto) 0.5 %; Lymphocytes # (auto) 1.07 K/uL (1.2-3.4); Lymphocytes % (auto) 11.6 %; Monocytes # (auto) 0.95 K/uL (0.11-0.59); Monocytes % (auto) 10.3 %; Neutrophils # (auto) 7.07 K/uL (1.4-6.5); RBC Morphology Unremarkable
--- NOTE | 2019-11-17 08:35 | Hospitalist Progress Note ---
Date of Service November 17, 2019 Assessment & Plan (1) Diverticulitis: * Complicated Acute on chronic diverticulitis with fistulization and multiple intra-abdominal abscesses-- 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 concern for sigmoid malignancy * without signs of septicemia or urgent need for surgical therapy currently * Continue IV ertapenem per ID, will switch to Augmentin po for 21 days total ab x * General Surgery -- per conversation, continue IV abx until Saturday, repeat CT A/P , could go home on po abx if improvement and follow up with colorectal surgery at [facility] for definitive treatment. If patient spikes temp, would transfer to tertiary care * Urology Consult- avoid catheterization * GI consult - appreciate input-defers to general surgery, no colonoscopy indicated at this time * ID Consult * Stool cultures negative * advance diet to clears per surgery . (2) Colitis: * As above (3) Colovesical fistula: * As above, with fecaluria and pneumaturia * Urology involved and thinks ultimately he needs complete work-up and likely surgical repair to be led by a colorectal surgery team. Limited acute interventions needed from a standpoint. At some point he will require cystoscopy but not emergently and agreed with continued use of antibiotics (4) Weakness: * PT/OT -- weakness likely related to acute illness diverticulitis/abscess/urinary tract infection/fistula. (5) Hyponatremia: * Improved * Sodium 128 on admission * IVF as ordered * Na 132 today * Continue to hold HCTZ (6) B12 deficiency: * B12 level 1287 * continue B12 supplementation (7) BPH (benign prostatic hyperplasia): * Patient with hematuria-- related to BPH and or urinary tract infection, or more likely fistula/stool in urine * Covering for urinary tract infection with antibiotics as above- culture without growth, however did receive Bactrim prior to admission * H/H 11.2/33.2 * Continue home tamsulosin 0.4mg daily (8) Dyslipidemia: * H/o * Lipid panel acceptable * Not on any home medications at this time (9) History of chronic cough: * Continue albuterol sulfate 1 puff every 6 hours as needed. (10) Hypertension: * BPs wnl -- currently 133/85 * Conitnue to hold home hydrochlorothiazide as above (11) Hematuria: * Most likely related to urinary tract infection but could be related to BPH as well. * Urology consult -- appreciate input (12) Elevated INR: * 1.4 today. Low protein status. * No active s/sx bleeding * Repeat in AM (13) Severe protein-calorie malnutrition: * start boost when taking consistent po * Albumin 1.6 (14) DVT prophylaxis: * SCDs,Lovenox Dispo: additional 2 days IV abx, repeat abdominal imaging tomorrow and possible outpatient follow up with colorectal surgery for definitive treatment if abscesses are improving Note: If patient spikes temp or becomes unstable, would transfer to [place] for colorectal surgery evaluation. Subjective Patient evaluated this morning in bed. Was tearful when talking about not being home for ruma damon with family, but after discussion to continue abx and repeat imaging tomorrow with possible discharge, patient much mroe calm and agreeable with plan. States he was able to have a bowel movement this morning, which was soft initially and then firm. Minimal left lower abdominal pain. States he was able to take a walk through the halls without much difficulty and that he is feeling "much better". Physical Exam Constitutional: WD/WN, vitals as above no acute distress Eyes: + anicteric sclerae and PERRL Neck: trachea midline, no thyromegaly Respiratory: normal respiratory effort, lungs clear to auscultation Cardiovascular: RRR, no murmur, no edema Gastrointestinal (Abdomen): Inspection/Auscultation: normal bowel sounds; abdomen not distended Percussion/Palpation: + abdomen tender (LLQ); abdomen not rigid Musculoskeletal: Head/Neck/Chest: + head abnormal to inspection Skin: no rashes, warm and dry Neurologic: moves all extremities and awake Speech / Cognition: normal speech Psychiatric: Orientation: alert and oriented x 3 Affect: + depressed affect Lymphatic: no cervical or axillary lymphadenopathy Results & Data Vital Signs (Past 12 Hours) Vital Signs Temp Pulse Pulse Resp BP BP Pulse Ox 11/17/19 08:00 36.8 C 109 H 14 133/85 96 11/16/19 23:30 11/16/19 23:21 36.7 C 76 18 125/79 96 Pulse Ox 11/17/19 08:00 11/16/19 23:30 96 11/16/19 23:21 Laboratory Results 11/17/19 11/17/19 11/17/19 Range/Units 05:00 05:00 05:00 WBC 9.20 (4.8-10.8) K/uL RBC 3.77 L (4.7-6.1) M/uL Hgb 11.2 L (14.0-18.0) g/dL Hct 33.2 L (42-52) % MCV 88.1 (80-100) fL MCH 29.7 (25-34) pg MCHC 33.7 (32-36) g/dL RDW Std Deviation 43.0 (36.4-46.3) fL RDW Coeff of Brandan 13.3 (11.5-14.5) % Plt Count 246 (130-400) K/uL MPV 9.0 (7.4-10.4) fL Immature Gran % (Auto) 0.5 % Neut % (Auto) 77.0 % Lymph % (Auto) 11.6 % [place] % (Auto) 10.3 % Eos % (Auto) 0.4 % Baso % (Auto) 0.2 % Immature Gran # (Auto) 0.05 H (0.00-0.02) K/uL Neut # (Auto) 7.07 H (1.4-6.5) K/uL Lymph # (Auto) 1.07 L (1.2-3.4) K/uL [place] # (Auto) 0.95 H (0.11-0.59) K/uL Eos # (Auto) 0.04 (0-0.5) K/uL Baso # (Auto) 0.02 (0-0.2) K/uL RBC Morphology Unremarkable PT (9.0-12.0) Seconds INR (0.9-1.1) Sodium 132 L (136-145) mmol/L Potassium 4.0 D (3.5-5.1) mmol/L Chloride 101 (98-107) mmol/L Carbon Dioxide 26 (21-32) mmol/L Anion Gap 5.0 (3-11) BUN 8 (7-18) mg/dl Creatinine 0.69 (0.6-1.4) mg/dl Est Cr Clr Drug Dosing 74.2 ml/min Est GFR ( Amer) 103.9 Est GFR (Non-Af Amer) 89.7 BUN/Creatinine Ratio 11.8 (10-20) Glucose 79 (70-99) mg/dl Calcium 7.8 L (8.5-10.1) mg/dl Magnesium Pending Total Bilirubin 0.6 (0.2-1) mg/dl AST 22 (15-37) U/L ALT 17 (12-78) U/L Alkaline Phosphatase 76 (45-117) U/L Total Protein 5.6 L (6.4-8.2) gm/dl Albumin 1.6 L (3.4-5.0) gm/dl Globulin 4.0 (2.5-4.0) gm/dl Albumin/Globulin Ratio 0.4 L (0.9-2) 11/17/19 Range/Units 05:00 WBC (4.8-10.8) K/uL RBC (4.7-6.1) M/uL Hgb (14.0-18.0) g/dL Hct (42-52) % MCV (80-100) fL MCH (25-34) pg MCHC (32-36) g/dL RDW Std Deviation (36.4-46.3) fL RDW Coeff of Brandan (11.5-14.5) % Plt Count (130-400) K/uL MPV (7.4-10.4) fL Immature Gran % (Auto) % Neut % (Auto) % Lymph % (Auto) % [place] % (Auto) % Eos % (Auto) % Baso % (Auto) % Immature Gran # (Auto) (0.00-0.02) K/uL Neut # (Auto) (1.4-6.5) K/uL Lymph # (Auto) (1.2-3.4) K/uL [place] # (Auto) (0.11-0.59) K/uL Eos # (Auto) (0-0.5) K/uL Baso # (Auto) (0-0.2) K/uL RBC Morphology PT 13.9 H (9.0-12.0) Seconds INR 1.4 H (0.9-1.1) Sodium (136-145) mmol/L Potassium (3.5-5.1) mmol/L Chloride (98-107) mmol/L Carbon Dioxide (21-32) mmol/L Anion Gap (3-11) BUN (7-18) mg/dl Creatinine (0.6-1.4) mg/dl Est Cr Clr Drug Dosing ml/min Est GFR ( Amer) Est GFR (Non-Af Amer) BUN/Creatinine Ratio (10-20) Glucose (70-99) mg/dl Calcium (8.5-10.1) mg/dl Magnesium Total Bilirubin (0.2-1) mg/dl AST (15-37) U/L ALT (12-78) U/L Alkaline Phosphatase (45-117) U/L Total Protein (6.4-8.2) gm/dl Albumin (3.4-5.0) gm/dl Globulin (2.5-4.0) gm/dl Albumin/Globulin Ratio (0.9-2) PG Care Time/CCT Total # of Minutes Spent Total Time Spent with Patient: Total time spent is greater than 50% in coordination of care (as documented) at patient's floor/unit and/or counseling patient:
[2019-11-17] MEDS: CYANOCOBALAMIN 500 MCG TABLET (VITAMIN B-12) PO SCH (08:41)
[2019-11-17] MEDS: TAMSULOSIN HCL 0.4 MG CAP PO SCH (08:41)
--- NOTE | 2019-11-17 10:22 | Surgery Progress Note ---
Date of Service November 17, 2019 Assessment & Plan (1) Diverticulitis: Long history of diverticulitis now with evidence of fistulous tracts involving the bladder and possibly small bowel Doing well on conservative management with IV antibiotics Consider advancing to full liquid diet Ideally can get him through this episode with antibiotics and he would then need to see colorectal surgery as an outpatient Subjective Long history of diverticulitis now with small fluid collections and also evidence of fistulas. Has some soreness in the left lower quadrant but the amount of pain that he is having is markedly less than when he was admitted Denies nausea and vomiting Tolerated clear liquid diet Physical Exam Gastrointestinal (Abdomen): Inspection/Auscultation: normal bowel sounds; abdomen not distended Percussion/Palpation: abdomen soft; abdomen nontender Results & Data Vital Signs (Past 12 Hours) Vital Signs Temp Pulse Pulse Resp BP BP Pulse Ox 11/17/19 08:44 91 H 11/17/19 07:18 36.8 C 109 H 14 133/85 96 11/16/19 23:30 11/16/19 23:21 36.7 C 76 18 125/79 96 Pulse Ox 11/17/19 08:44 11/17/19 07:18 11/16/19 23:30 96 11/16/19 23:21 Laboratory Results 11/17/19 11/17/19 11/17/19 Range/Units 05:00 05:00 05:00 WBC 9.20 (4.8-10.8) K/uL RBC 3.77 L (4.7-6.1) M/uL Hgb 11.2 L (14.0-18.0) g/dL Hct 33.2 L (42-52) % MCV 88.1 (80-100) fL MCH 29.7 (25-34) pg MCHC 33.7 (32-36) g/dL RDW Std Deviation 43.0 (36.4-46.3) fL RDW Coeff of Brandan 13.3 (11.5-14.5) % Plt Count 246 (130-400) K/uL MPV 9.0 (7.4-10.4) fL Immature Gran % (Auto) 0.5 % Neut % (Auto) 77.0 % Lymph % (Auto) 11.6 % [place] % (Auto) 10.3 % Eos % (Auto) 0.4 % Baso % (Auto) 0.2 % Immature Gran # (Auto) 0.05 H (0.00-0.02) K/uL Neut # (Auto) 7.07 H (1.4-6.5) K/uL Lymph # (Auto) 1.07 L (1.2-3.4) K/uL [place] # (Auto) 0.95 H (0.11-0.59) K/uL Eos # (Auto) 0.04 (0-0.5) K/uL Baso # (Auto) 0.02 (0-0.2) K/uL RBC Morphology Unremarkable PT (9.0-12.0) Seconds INR (0.9-1.1) Sodium 132 L (136-145) mmol/L Potassium 4.0 D (3.5-5.1) mmol/L Chloride 101 (98-107) mmol/L Carbon Dioxide 26 (21-32) mmol/L Anion Gap 5.0 (3-11) BUN 8 (7-18) mg/dl Creatinine 0.69 (0.6-1.4) mg/dl Est Cr Clr Drug Dosing 74.2 ml/min Est GFR ( Amer) 103.9 Est GFR (Non-Af Amer) 89.7 BUN/Creatinine Ratio 11.8 (10-20) Glucose 79 (70-99) mg/dl Calcium 7.8 L (8.5-10.1) mg/dl Magnesium 1.9 (1.8-2.4) mg/dl Total Bilirubin 0.6 (0.2-1) mg/dl AST 22 (15-37) U/L ALT 17 (12-78) U/L Alkaline Phosphatase 76 (45-117) U/L Total Protein 5.6 L (6.4-8.2) gm/dl Albumin 1.6 L (3.4-5.0) gm/dl Globulin 4.0 (2.5-4.0) gm/dl Albumin/Globulin Ratio 0.4 L (0.9-2) 11/17/19 Range/Units 05:00 WBC (4.8-10.8) K/uL RBC (4.7-6.1) M/uL Hgb (14.0-18.0) g/dL Hct (42-52) % MCV (80-100) fL MCH (25-34) pg MCHC (32-36) g/dL RDW Std Deviation (36.4-46.3) fL RDW Coeff of Brandan (11.5-14.5) % Plt Count (130-400) K/uL MPV (7.4-10.4) fL Immature Gran % (Auto) % Neut % (Auto) % Lymph % (Auto) % [place] % (Auto) % Eos % (Auto) % Baso % (Auto) % Immature Gran # (Auto) (0.00-0.02) K/uL Neut # (Auto) (1.4-6.5) K/uL Lymph # (Auto) (1.2-3.4) K/uL [place] # (Auto) (0.11-0.59) K/uL Eos # (Auto) (0-0.5) K/uL Baso # (Auto) (0-0.2) K/uL RBC Morphology PT 13.9 H (9.0-12.0) Seconds INR 1.4 H (0.9-1.1) Sodium (136-145) mmol/L Potassium (3.5-5.1) mmol/L Chloride (98-107) mmol/L Carbon Dioxide (21-32) mmol/L Anion Gap (3-11) BUN (7-18) mg/dl Creatinine (0.6-1.4) mg/dl Est Cr Clr Drug Dosing ml/min Est GFR ( Amer) Est GFR (Non-Af Amer) BUN/Creatinine Ratio (10-20) Glucose (70-99) mg/dl Calcium (8.5-10.1) mg/dl Magnesium (1.8-2.4) mg/dl Total Bilirubin (0.2-1) mg/dl AST (15-37) U/L ALT (12-78) U/L Alkaline Phosphatase (45-117) U/L Total Protein (6.4-8.2) gm/dl Albumin (3.4-5.0) gm/dl Globulin (2.5-4.0) gm/dl Albumin/Globulin Ratio (0.9-2)
[2019-11-17] MEDS ORDERED: COUGH DROP (SUGAR FREE) LOZ 24 LOZ/1 BOX BUCCAL STA (11:27)
[2019-11-17] MEDS ORDERED: ACETAMINOPHEN 325 MG TAB PO PRN (15:14)
[2019-11-17] MEDS: ENOXAPARIN INJ 40 MG/0.4 ML SYR SQ SCH (20:56)
[2019-11-17] MEDS: ERTAPENEM SODIUM 1,000 MG in SODIUM CHLORIDE 0.9% 50 ML IV SCH (20:56)
[2019-11-18 06:21] LABS: Hematocrit (blood only) 33.3 % (42-52); Mean Corpuscular Hemoglobin 28.9 pg (25-34); Mean Corpuscular Volume 87.4 fL (80-100); Platelet Count 229 K/uL (130-400); RDW Coefficient of Variation 13.2 % (11.5-14.5); RDW Standard Deviation 42.6 fL (36.4-46.3); Red Blood Count 3.81 M/uL (4.7-6.1); White Blood Count 7.34 K/uL (4.8-10.8)
[2019-11-18 06:32] LABS: INR 1.3 (0.9-1.1); Prothrombin Time 13.5 Seconds (9.0-12.0)
[2019-11-18 06:49] LABS: Albumin Level 1.5 gm/dl (3.4-5.0); BUN Creatinine Ratio 11.2 (10-20); Calcium 7.5 mg/dl (8.5-10.1); Creatinine Clr Calc Pharmacy 81.2 ml/min; Est GFR (African American) 107.9; Est GFR (Non-African American) 93.1; Potassium 4.1 mmol/L (3.5-5.1)
[2019-11-18 06:51] LABS: Basophils # (auto) 0.02 K/uL (0-0.2); Basophils % (auto) 0.3 %; Eosinophils # (auto) 0.04 K/uL (0-0.5); Eosinophils % (auto) 0.5 %; Immature Granulocytes # (auto) 0.05 K/uL (0.00-0.02); Immature Granulocytes % (auto) 0.7 %; Lymphocytes # (auto) 0.91 K/uL (1.2-3.4); Lymphocytes % (auto) 12.4 %; Monocytes # (auto) 0.89 K/uL (0.11-0.59); Monocytes % (auto) 12.1 %; Neutrophils # (auto) 5.43 K/uL (1.4-6.5)
[2019-11-18 06:52] LABS: Albumin Globulin Ratio 0.4 (0.9-2); Bilirubin,Total 0.6 mg/dl (0.2-1); Globulin 3.8 gm/dl (2.5-4.0); Total Protein 5.3 gm/dl (6.4-8.2)
[2019-11-18] MEDS: TAMSULOSIN HCL 0.4 MG CAP PO SCH (08:19)
[2019-11-18] MEDS: CYANOCOBALAMIN 500 MCG TABLET (VITAMIN B-12) PO SCH (08:19)
[2019-11-18] MEDS: MAGNESIUM SULFATE / D5W 1 GM/100 ML BAG IV SCH ×2 (09:08→10:14)
--- NOTE | 2019-11-18 09:36 | CT Scan Report ---
CT OF THE ABDOMEN AND PELVIS WITHOUT CONTRAST CLINICAL HISTORY: Complicated diverticulitis, fistulization. Left-sided abdominal pain. COMPARISON STUDY: CT of the abdomen and pelvis November 14, 2019. TECHNIQUE: Axial images of the abdomen and pelvis were obtained without IV contrast. Images were revi ewed in the axial, sagittal, and coronal planes. Automated exposure control was utilized for the johnathan dy. A dose lowering technique was utilized adhering to the principles of ALARA. FINDINGS: There has been interval development of small bilateral pleural effusions with interstitial edema. There is underlying interstitial lung disease. Evaluation of the abdomen and pelvis is subopti mal on this unenhanced examination. There is no free air. The liver, spleen, adrenal glands are unrem arkable with the exception of a low-attenuation right adrenal nodule which favors an adenoma. There i s no hydronephrosis. Minimal peripancreatic infiltration is probably due to volume overload. There is no evidence for a bowel obstruction. The colon is fluid-filled. The thickening with adjacent infiltr ation and numerous small gas and fluid containing collections arising from the proximal sigmoid colon is again noted. Inflammation has mildly increased. This extends into the anterior abdominal wall. Un derlying fistula to the bladder with gas within the bladder and urethra is noted. Possible fistula to small bowel is noted. These findings are suboptimally assessed on this unenhanced exam. IMPRESSION: 1. Extensive left lower quadrant inflammatory process. Findings again suggestive of acute complicated diverticulitis, likely involving the proximal sigmoid colon with numerous small gas and fluid contai tirso collections with fistulization to the bladder and anterior abdominal wall as well as possible sm all bowel fistula. Slight increase in associated inflammation since CT of November 14, 2019. No large drainable collection. 2. Interval development of small bilateral pleural effusions with pulmonary edema. ACT 112: Negative or not required by law. Electronically signed by: Jerald Thurman M.D. 11/18/2019 9:34 AM
[2019-11-18] MEDS: NSS + 20MEQ KCL 20 MEQ/1,000 ML BAG IV SCH ×2 (11:10)
--- NOTE | 2019-11-18 11:11 | Surgery Progress Note ---
Date of Service pt is stable, pt said pt had some LLQ pain last night, now pt is doing fine, no abdominal pain, he tolerated diet. no fever, November 18, 2019 Assessment & Plan (1) Diverticulitis: Long history of diverticulitis now with evidence of fistulous tracts involving the bladder and possibly small bowel Doing well on conservative management with IV antibiotics Consider advancing to full liquid diet Ideally can get him through this episode with antibiotics and he would then need to see colorectal surgery as an outpatient 11/18/2019 11:17am Dr. Duncan CT scan (11/18/2019)IMPRESSION: 1. Extensive left lower quadrant inflammatory process. Findings again suggestive of acute complicated diverticulitis, likely involving the proximal sigmoid colon with numerous small gas and fluid containing collections with fistulization to the bladder and anterior abdominal wall as well as possible small bowel fistula. Slight increase in associated inflammation since CT of November 14, 2019. No large drainable collection. 2. Interval development of small bilateral pleural effusions with pulmonary edema. base on CT scan finding- complicated diverticulitis with fistula recommend to transfer to higher level care for colorectal surgeon for further Dx and treatment, D/W benefits, risks and alternatives of the transfer, pt and his understood, they agree with transfer. I answered all questions. Supervising Physician Co-Signing Physician Notes Attending attestation I have seen, examined this patient, and agree with the findings and above by our mid-level provider ADALBERTO Lizarraga, with the following additions -Clinically doing well, no abdominal pain, normal bowel movement today. -No fevers or chills -GI will sign off -Diet and follow-up imaging/surgical determination per surgery. Subjective Long history of diverticulitis now with small fluid collections and also evidence of fistulas. Has some soreness in the left lower quadrant but the amount of pain that he is having is markedly less than when he was admitted Denies nausea and vomiting Tolerated clear liquid diet Physical Exam Constitutional: WD/WN, vitals as above well developed and well nourished Neck: trachea midline, no thyromegaly Respiratory: normal respiratory effort, lungs clear to auscultation Cardiovascular: RRR, no murmur, no edema Heart Sounds: normal S1 and normal S2 Gastrointestinal (Abdomen): Percussion/Palpation: abdomen soft soft, palpable lump on LLQ. mild tenderness, no rebound pain, no distend. Musculoskeletal: no cyanosis or clubbing, extremities motor strength 5/5 Skin: no rashes, warm and dry Neurologic: patellar DTR's 2+ bilat, sensation intact awake Psychiatric: Orientation: alert and oriented x 3 Results & Data Vital Signs (Past 12 Hours) Vital Signs Temp Pulse Resp BP Pulse Ox 11/18/19 07:35 36.6 C 78 16 147/84 H 95 11/17/19 23:10 36.8 C 78 18 129/89 98 Laboratory Results Abnormal lab results 11/14/19 11/18/19 11/18/19 Range/Units 20:09 06:04 06:04 RBC (4.7-6.1) M/uL Hgb (14.0-18.0) g/dL Hct (42-52) % Immature Gran # (Auto) (0.00-0.02) K/uL Lymph # (Auto) (1.2-3.4) K/uL [place] # (Auto) (0.11-0.59) K/uL PT 13.5 H (9.0-12.0) Seconds INR 1.3 H (0.9-1.1) Sodium 132 L (136-145) mmol/L Calcium 7.5 L (8.5-10.1) mg/dl Magnesium (1.8-2.4) mg/dl Total Protein 5.3 L (6.4-8.2) gm/dl Albumin 1.5 L (3.4-5.0) gm/dl Albumin/Globulin Ratio 0.4 L (0.9-2) CA 19-9 Antigen 57 H (<34) U/mL 11/18/19 11/18/19 Range/Units 06:04 06:04 RBC 3.81 L (4.7-6.1) M/uL Hgb 11.0 L (14.0-18.0) g/dL Hct 33.3 L (42-52) % Immature Gran # (Auto) 0.05 H (0.00-0.02) K/uL Lymph # (Auto) 0.91 L (1.2-3.4) K/uL [place] # (Auto) 0.89 H (0.11-0.59) K/uL PT (9.0-12.0) Seconds INR (0.9-1.1) Sodium (136-145) mmol/L Calcium (8.5-10.1) mg/dl Magnesium 1.7 L (1.8-2.4) mg/dl Total Protein (6.4-8.2) gm/dl Albumin (3.4-5.0) gm/dl Albumin/Globulin Ratio (0.9-2) CA 19-9 Antigen (<34) U/mL Diagnostic Findings CT OF THE ABDOMEN AND PELVIS WITHOUT CONTRAST CLINICAL HISTORY: Complicated diverticulitis, fistulization. Left-sided abdominal pain. COMPARISON STUDY: CT of the abdomen and pelvis November 14, 2019. TECHNIQUE: Axial images of the abdomen and pelvis were obtained without IV contrast. Images were reviewed in the axial, sagittal, and coronal planes. Automated exposure control was utilized for the study. A dose lowering technique was utilized adhering to the principles of ALARA. FINDINGS: There has been interval development of small bilateral pleural effusions with interstitial edema. There is underlying interstitial lung disease. Evaluation of the abdomen and pelvis is suboptimal on this unenhanced examination. There is no free air. The liver, spleen, adrenal glands are unrem arkable with the exception of a low-attenuation right adrenal nodule which favors an adenoma. There is no hydronephrosis. Minimal peripancreatic infiltration is probably due to volume overload. There is no evidence for a bowel obstruction. The colon is fluid-filled. The thickening with adjacent infiltration and numerous small gas and fluid containing collections arising from the proximal sigmoid colon is again noted. Inflammation has mildly increased. This extends into the anterior abdominal wall. Underlying fistula to the bladder with gas within the bladder and urethra is noted. Possible fistula to small bowel is noted. These findings are suboptimally assessed on this unenhanced exam.
--- NOTE | 2019-11-18 11:49 | Discharge Summary ---
Date of Service November 18, 2019 Admission HPI Per Admitting Provider Patient is a 79 years old male with past medical history of chronic cough, hypertension, BPH, B12 deficiency, who was brought by his son and with a complaint that patient has diarrhea and abdominal pain for 2 months and that he is losing weight and lost approximately approximately 20 pounds and that he was trying to avoid to see a doctor and address this problem for 2 months. Patient states that he lost appetite which was not of concern to him but it was of concern to his family. Patient said that his problem has been ongoing for 20 years and it is worsening. He reports having diverticulosis that on occasion becomes diverticulitis and he was treating it with antibiotics from time to time Metamucil etc. Patient family is concerned that if he goes home he will not be treated at all and they will have difficult time bringing him back. ER physician discussed the case with Dr. Tomas BYRD and he recommended to start him on antibiotics and see if there is any improvement but eventually patient would need to see colorectal surgeon for further evaluation and treatment of his extensive GI disease. Patient denies fever, chills, chest pain, shortness of breath, frequency, urgency. He reports loose bowel movements and states that there was no blood in there. Patient denies melena and hematochezia. Of the record, per ER physician patient's transfer to [facility] to see colorectal surgeon at this point would be extremely difficult because there is no bed available and patient would need to wait at least 12+ hours for the bed. Labs are reviewed: WBCs 10.91, hemoglobin 11.2, hematocrit 32.6, platelets 250, PT 13.3, INR 1.3, APTT 28.5. Sodium 128, potassium 3.1, chloride 91, creatinine 0.86, GFR 81.9, lactate 1.2, bilirubin 0.5, troponin is 0.015, total protein 6.3, albumin 2, globulin 4.3, procalcitonin 0.18, urine turbid, urine protein 1+, urine blood 3+, leukocyte esterase 3+, WBCs 30, bacteria 1+. CT abdomen pelvis shows extensive wall thickening of the sigmoid colon with tonio-colonic inflammatory change and diverticulosis suggesting chronic diverticular disease/circular muscle hyperplasia with superimposed complicated acute diverticulitis. Fistulization suspected with the adjacent urinary bladder, loops of small bowel and multiple gas and feces containing collections. These collections presumptively represent abscess measuring 3.7 cm. There are not well aligned in the absence of the intravenous and oral contrast. An underlying sigmoid colon neoplasm is difficult to exclude and colonoscopy should be performed after treatment. Patient has chronic lung disease. Decision was made to admit patient to [facility] floor acute on chronic diverticulitis/abscess/fistula, urinary tract infection, anorexia, weight loss, and further on treatment deemed to be necessary. Admission Exam Per Admitting Provider Constitutional: WD/WN, vitals as above well developed and + cachectic Eyes: PERRL, conjunctivae normal, anicteric sclerae ENMT: external ear and nose normal, oropharynx normal Neck: trachea midline, no thyromegaly Respiratory: normal respiratory effort, lungs clear to auscultation Cardiovascular: Heart Sounds: normal S1 and normal S2 Vessels: dorsalis pedis pulses present Gastrointestinal (Abdomen): Inspection/Auscultation: + abdomen distended, + high-pitched sounds and + hyperactive bowel sounds Percussion/Palpation: + abdomen tender and abdomen soft Bowel sounds hyperactive and pitched. Patient reports nonbloody diarrhea. Musculoskeletal: no cyanosis or clubbing, extremities motor strength 5/5 Skin: no rashes, warm and dry Neurologic: patellar DTR's 2+ bilat, sensation intact Psychiatric: A+Ox3, euthymic affect Genitourinary: Positive for suprapubic tenderness Lymphatic: no cervical or axillary lymphadenopathy Principal Diagnosis Complicated Diverticulitis with Fistulization Discharge Exam Constitutional WD/WN, vitals as above no acute distress Eyes + anicteric sclerae and PERRL Neck trachea midline, no thyromegaly normal visual inspection and trachea midline Respiratory normal respiratory effort, lungs clear to auscultation normal respiratory effort; no respiratory distress and no labored breathing Auscultation: + diminished lung sounds (in the bases, bilaterally) and + crackles Cardiovascular RRR, no murmur, no edema Rate/Rhythm: regular rate and regular rhythm Gastrointestinal (Abdomen) Inspection/Auscultation: normal bowel sounds; abdomen not distended Percussion/Palpation: + abdomen tender (LLQ); abdomen not rigid Musculoskeletal Head/Neck/Chest: + head abnormal to inspection Skin no rashes, warm and dry Neurologic moves all extremities and awake Speech / Cognition: normal speech Psychiatric A+Ox3, euthymic affect Orientation: alert and oriented x 3 Affect: + depressed affect Lymphatic no cervical or axillary lymphadenopathy Discharge Data Allergies Allergy/AdvReac Type Severity Reaction Status Date / Time No Known Allergies Allergy Verified 11/14/19 15:02 Consultations 11/14/19 16:49 ED Decision to Admit Stat 11/14/19 19:46 Consult Gastroenterology Routine 11/15/19 09:12 Consult Urology Routine 11/15/19 11:18 Consult General Surgery Routine Consult Infectious Diseases Routine 11/18/19 11:27 Burn CD for patient Routine Ordered Studies 11/14/19 14:52 CT abd pelvis wo con Stat CT head/brain wo con Stat 11/18/19 08:00 CT abd pelvis wo con Routine Hospital Course (1) Diverticulitis: * Complicated Acute on chronic diverticulitis with fistulization and multiple intra-abdominal abscesses-- 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 concern for sigmoid malignancy * Temp 102 on 11/17 x1 -- resolved with tylenol. Blood cultures drawn at that time. Discussed with general surgery, to repeat CT A/P this morning * General Surgery -- per conversation, continued IV abx until Saturday (today), repeated CT A/P this morning --> worsening of inflammation since CT 11/14. Fistulization to bladder and anterior abdominal wall and bladder with possible small bowel fistula --> TRANSFER TO [facility]. DISCUSSED WITH DR. HARRISON THAKKAR, accepted to med/surg. To go to room [address] [place] [address]. * Urology Consult- avoid catheterization * GI consult - appreciate input-deferred to general surgery, no colonoscopy indicated at this time * ID Consult -- initially on cipro/flagyl --> transitioned to IV Ertapenem * Stool cultures negative . (2) Colitis: * As above (3) Colovesical fistula: * As above, with fecaluria and pneumaturia * Urology involved and thinks ultimately he needs complete work-up and likely surgical repair to be led by a colorectal surgery team. Limited acute interventions needed from a standpoint. At some point he will require cystoscopy but not emergently and agreed with continued use of antibiotics (4) Weakness: * PT/OT -- weakness likely related to acute illness diverticulitis/abscess/urinary tract infection/fistula. (5) Hyponatremia: * Improved * Sodium 128 on admission * IVF as ordered * Na 132 today * Continue to hold HCTZ (6) B12 deficiency: * B12 level 1287 * continue B12 supplementation (7) BPH (benign prostatic hyperplasia): * Patient with hematuria-- related to BPH and or urinary tract infection, or more likely fistula/stool in urine * Covering for urinary tract infection with antibiotics as above- culture without growth, however did receive Bactrim prior to admission * H/H 11.2/37.4 * Continue home tamsulosin 0.4mg daily (8) Dyslipidemia: * H/o * Lipid panel acceptable * Not on any home medications at this time (9) History of chronic cough: * Continue albuterol sulfate 1 puff every 6 hours as needed. (10) Hypertension: * BPs elevated, but stable -- 147/74 * Continue to hold home hydrochlorothiazide as above (11) Hematuria: * Most likely related to urinary tract infection but could be related to BPH as well. * Urology consult -- appreciate input (12) Elevated INR: * 1.3 today. Low protein status. (13) Severe protein-calorie malnutrition: * start boost when taking consistent po * Albumin 1.6 (14) DVT prophylaxis: * SCDs,Lovenox while inpatient Patient to be discharged to [facility] when bed available.. Accepting physician Dr. Thakkar, colorectal surgery. Total Time Total Time Spent Total Time Spent (In Minutes): 60 Discharge Plan Discharge Items Patient Disposition: Transfer Acute Care Hospital Reason For Visit: ABDOMINAL PAIN Discharge Diagnosis: Complicated Diverticulitis with Fistulization Activity: As commented below Activity Comment: bedrest, until evaluated by accepting physician Non-emergency contact: Primary Care Provider Call non-emergency contact if: you have any medication questions Follow-up/Referrals: Dr. Harrison Thakkar [Other] - 12/02/19 2:30 pm (Please, follow up at [facility] Office with Dr. Harrison Thakkar (colorectal surgeon) on SaturdayDecember 02 at 2:30 pm. *The office is located at [address] [place] [address] in [place]. If you need to change this appointment, call the office at [phone].) Litzy Santamaria, DO [Primary Care Provider] - 11/27/19 9:30 am (Please, follow up at Dr. Santamaria's office with her associate, Jovita GLOVER, on SaturdayNovember 27 at 9:30 am. *If you need to change this appointment, call the office at [phone].) Diet: Carb Consistent or DM2 and Heart Healthy Diet Comment: NPO UNTIL SEEN BY SURGERY IN [facility] Attending Provider Instructions: Patient transferred to [facility] . Continue IV Ertapenem. Blood cultures from 11/17 pending. NGTD. Patient accepted by Dr. Harrison Thakkar. Room 631B, [facility]. Pending Studies at Discharge: Yes Studies:: Blood Cultures Stand-Alone Forms: My [facility] Skilled Items Patient informed of condition?: Yes DNR: No Discharge Level of Care: Other Communicable Disease: No Discharge Prognosis: Deteriorating Lines: Peripheral IV Urinary Catheter: No Medications and DC Order Prescriptions: New cyanocobalamin (vitamin B-12) 500 mcg Tablet 500 mcg PO QAM Qty: 30 RF: 0 Continued albuterol sulfate [ProAir HFA] 90 mcg/actuation HFA aerosol inhaler 1 puffs INH Q6H PRN (Reason: Shortness Of Breath Or Wheezing) RF: 0 multivitamin tablet 1 tab PO DAILY RF: 0 hydrochlorothiazide 12.5 mg capsule 12.5 mg PO DAILY RF: 0 tamsulosin 0.4 mg capsule 0.4 mg PO DAILY RF: 0 cyanocobalamin (vitamin B-12) 5,000 mcg capsule 5,000 mcg PO DAILY RF: 0 Discontinued sulfamethoxazole-trimethoprim [Bactrim DS] 800-160 mg tablet 1 tab PO BID 10 Days Qty: 20 RF: 0 Discharge Orders: Discharge Order (Routine); Ordered 11/18/19 Ordered By: Aileen Blandon Admission Data Admit Date/Time: 11/14/19 17:48 Attending Provider: Sabina Hale Admit Provider: William Fernandez Primary Care Provider: Litzy Santamaria Other Providers: Tomas Stallworth ; Eran Castellanos ; Wali Moy ; Tati Rodas ; Rory Cornell Other Interventions: Discharge Summary Assessment (RN) Last Done: 11/18/19 13:29 DC Date/Time DO NOT enter until pt leaves facility: 11/18/19 14:36 Supervising Physician Co-Signing Physician Notes Pt seen and examined by me. States his abd pain is better than [employer], is more of a discomfort at this time. states that pt is a minimizer. He has been tolerating PO, but is currently NPO for transfer. Denies chest pain or SOB. Tolerating PO without issue. States his diarrhea is increased today. Agree with HPI/ROS as noted by PA Agree with PA exam, noted for abd TTP Agree with plan as outlined above CTAP noted to be worse this AM Gen surg requesting pt be transferred for colorectal surgery.
== END 2019-11-18 14:36 | disposition short-term general hospital (02) | DRG 391 ==
LOC: ED 14:32 → SUATTDRO 17:48 → 3N 17:48